=== PATIENT | female | born 1955 | race Caucasian/White ===

== ENCOUNTER 2020-02-29 17:44 | Inpatient (IN) | payer MEDICAID ==
[~2020-02-29] VITALS: Ht 157 cm; Wt 68.8 kg
[2020-02-29] VITALS (7 sets, daily range): BP systolic 108–140; BP diastolic 62–84
[~2020-02-29 17:44] MED LIST: ACET500T94 PO; AMT25T; ASP81TEC PO; B/P MED; BISA5TAB8 PO; BSC10SU PR; CANA300T PO; CEPH250S PO; CHLR10C PO; CIPR500T78 PO; CLON0.5T3 PO; CLOZ100T7 PO; CLOZ150T PO; CPR500T PO; DCS100C PO; DIAZ10TA; DIAZ10TA PO; DOCU100T7 PO; EST30C VG; ESZO2TAB4 PO; FENO135C PO; FENO135C4 PO; GLIM4TAB PO; HYDR-3600; HYDR25CA5 PO; HYDR50CA3; LURA40TA PO; MGCT300B PO; MTF500T PO; MTH750T PO; NA P133E35 PR; NFTRIAZ.25 PO; OMEP40CA36 PO; OXYB5SYR2 PO; OXYB92GE TD; PEDI1TAB36 PO; POLY255P PO; QTP100T PO; RAME8T PO; SIMV10TA3 PO; SITA100T PO; SITA25TA; SITA50TA PO; TRAM50TA2 PO; TRAZ150T42; TRZ50T; VALP250C3 PO; ZOLP5TAB6 PO; [UNRECOGNIZED DRUG - CODE] PO; [UNRECOGNIZED DRUG - CODE] PO
[2020-02-29] MEDS ORDERED: LACTATED RINGERS 2,000 ML IV ONE (17:51)
[2020-02-29] MEDS ORDERED: LACTATED RINGERS 1,000 ML IV ONE (17:54)
[2020-02-29 18:01] LABS: BASOPHILS % (AUTO) 1 % (0-10); EOSINOPHILS # (AUTO) 0.1 10^3/uL (0.0-0.3); EOSINOPHILS % (AUTO) 2 % (0-10); HEMOGLOBIN 14.4 g/dL (11.5-16.0); MEAN PLATELET VOLUME 9.4 fL (9.0-12.2)
[2020-02-29 18:03] LABS: HEMATOCRIT 40 % (35-52); LYMPHOCYTES % (AUTO) 32 % (12-44); MEAN CORPUSCULAR HEMOGLOBIN 33 pg (25-34); MEAN CORPUSCULAR HGB CONC 36 g/dL (32-36); MEAN CORPUSCULAR VOLUME 91 fL (80-99); MONOCYTES # (AUTO) 0.4 10^3/uL (0.0-1.0); MONOCYTES % (AUTO) 7 % (0-12); NEUTROPHILS # (AUTO) 3.6 10^3/uL (1.8-7.8); NEUTROPHILS % (AUTO) 59 % (42-75); WHITE BLOOD COUNT 6.2 10^3/uL (4.3-11.0)
[2020-02-29 18:04] LABS: PLATELET COUNT 88 10^3/uL (130-400)
[2020-02-29 18:06] LABS: ALBUMIN 4.3 GM/DL (3.2-4.5); CHLORIDE 100 MMOL/L (98-107); POTASSIUM 3.8 MMOL/L (3.6-5.0); SODIUM 129 MMOL/L (135-145)
[2020-02-29 18:07] LABS: BILIRUBIN,URINE NEGATIVE (NEGATIVE); CLARITY,URINE CLEAR; COLOR,URINE YELLOW; GLUCOSE, URINE (UA) 2+ (NEGATIVE); KETONES,URINE NEGATIVE (NEGATIVE); LEUKOCYTE ESTERASE ,URINE NEGATIVE (NEGATIVE); NITRITE,URINE NEGATIVE (NEGATIVE); PH,URINE 6.5 (5-9); PROTEIN,URINE NEGATIVE (NEGATIVE)
[2020-02-29 18:08] LABS: CALCIUM 8.8 MG/DL (8.5-10.1)
[2020-02-29 18:09] LABS: GLUCOSE 81 MG/DL (70-105); TOTAL PROTEIN 7.8 GM/DL (6.4-8.2)
[2020-02-29 18:10] LABS: BILIRUBIN,TOTAL 0.5 MG/DL (0.1-1.0); CARBON DIOXIDE 16 MMOL/L (21-32)
[2020-02-29 18:12] LABS: ALKALINE PHOSPHATASE 64 U/L (40-136); CREATININE SERUM 0.81 MG/DL (0.60-1.30); GFR ESTIMATED > 60
[2020-02-29 18:13] LABS: BUN/CREATININE RATIO 30
[2020-02-29 18:15] LABS: ALANINE AMINOTRANSFERASE 9 U/L (0-55)
[2020-02-29 18:15] LABS: BACTERIA,URINE NEGATIVE /HPF
[2020-02-29 18:35] LABS: AMPHETAMINE SCREEN, URINE NEGATIVE (NEGATIVE); BARBITURATE SCREEN URINE NEGATIVE (NEGATIVE); BENZODIAZEPINES SCREEN URINE NEGATIVE (NEGATIVE); CANNABINOID SCREEN, URINE NEGATIVE (NEGATIVE); COCAINE SCREEN URINE NEGATIVE (NEGATIVE); METHADONE STAT NEGATIVE (NEGATIVE); METHAMPHETAMINE SCREEN URINE S NEGATIVE (NEGATIVE); OPIATE SCREEN URINE NEGATIVE (NEGATIVE); OXYCODONE STAT NEGATIVE (NEGATIVE); PROPOXYPHENE STAT NEGATIVE (NEGATIVE); TRICYCLIC ANTIDEPRESSANTS SCRE NEGATIVE (NEGATIVE)
[2020-02-29 18:35] LABS: MAGNESIUM 2.1 MG/DL (1.6-2.4)
[2020-02-29 18:36] LABS: SALICYLATE < 5.0 MG/DL (5.0-20.0)
[2020-02-29 18:43] LABS: ACETAMINOPHEN < 10 UG/ML (10-30); VALPROIC ACID < 2.0 UG/ML (50.0-100.0)
--- NOTE | 2020-02-29 18:52 | ED General ---
General Chief Complaint: Trauma-Non Activation Nursing Triage Note: PT ARRIVED PER EMS PT WAS FOUND ON FLOOR, UNKNOWN AMT OF TIME BS 69 FOR EMS, PT HAS D10 INFUSING ON ARRIVAL IN L AC. PT IS CONFUSED AND IS ABLE TO MOVE ALL EXT. PT BP LOW FOR EMS BUT 198/86 UPON ARRIVAL. PT BS 109 UPON ARRIVAL D10 STOPPED Nursing Sepsis Screen: No Definite Risk Source of Information: Patient Exam Limitations: No Limitations History of Present Illness Date Seen by Provider: Feb 29, 2020 Time Seen by Provider: 17:51 Initial Comments This 64-year-old woman presents to the emergency room via EMS with altered mental status. She was checked on by her neighbor multiple times today. She was found on the floor with incontinence and urine soaked. He was able to get her up thing encourage her to shower. He came back later and checked on her and she had showered. He checked on her a third time and found her on the floor, confused, and not wearing pants. EMS reported a fingerstick blood sugar of 69. They started infusing D10. Blood sugar improved and was 109 by the time she arrived to the ER. EMS also reported hypotension with a systolic blood pressure of 80. However, she is not hypotensive on arrival. Patient does have a history of syncope on review of chart. She also has diabetes and takes glimepiride. She also takes multiple psychiatric medications and has a documented history of schizophrenia. Speech is mumbled on presentation for nursing staff. By the time of my exam she can answer most questions. She denies any pain. She is alert to person, age, year, and location. She is disoriented to month. She has a tremor and it is unclear of the chronicity. She states she has this intermittently but does not answer how long she has had it. She is afebrile and she denies any symptoms of infectious illness. Last known well time was prior to today. Location Injury Occurred: HOME Allergies and Home Medications Allergies Coded Allergies: codeine (Verified Allergy, Mild, 11/01/12) Penicillins (Verified Allergy, Unknown, 11/01/12) sulindac (Verified Allergy, Unknown, 11/01/12) amitriptyline (Verified Adverse Reaction, Intermediate, 11/01/12) Home Medications Acetaminophen 500 Mg Tablet, 500 MG PO Q8H PRN for PAIN, (Reported) Canagliflozin 300 Mg Tablet, 300 MG PO DAILY, (Reported) Ciprofloxacin HCl 500 Mg Tablet, 500 MG PO BID Prescribed by: ELIZABETH HUERTA on 09/26/14 0755 Clonazepam 0.5 Mg Tablet, 0.5 MG PO BID PRN for ANXIETY, (Reported) Clozapine 100 Mg Tablet, 500 MG PO HS, (Reported) TAKES 5 (100MG) TABLETS Docusate Sodium 100 Mg Capsule, 100 MG PO TID PRN for CONSTIPATION, (Reported) LAST FILLED 04-16-14 Estrogens Conjugated 30 Gm Cr, 1 GM VG WED & SAT, (Reported) Fenofibric Acid (Choline) 135 Mg Capsule.dr, 135 MG PO DAILY, (Reported) Glimepiride 4 Mg Tablet, 8 MG PO DAILY, (Reported) TAKES 2 (4MG) TABLETS Omeprazole 40 Mg Capsule.dr, 40 MG PO DAILY, (Reported) Oxybutynin 92 Gm Gel.slater apprentice, 3 APPLIC TD DAILY, (Reported) LAST FILLED 07-25-14 APPLY 3 PUMPS Polyethylene Glycol 3350 255 Gm Powder, 17 GM PO DAILY PRN for CONSTIPATION, (Reported) Sitagliptin Phosphate 100 Mg Tablet, 100 MG PO DAILY, (Reported) Tramadol Hcl 50 Mg Tab, 50 MG PO BID PRN for PAIN, (Reported) Valproic Acid 250 Mg Capsule, 250 MG PO BID, (Reported) Patient Home Medication List Home Medication List Reviewed: Yes Review of Systems Review of Systems Constitutional: see HPI EENTM: no symptoms reported Respiratory: wheezing Cardiovascular: see HPI Gastrointestinal: no symptoms reported Genitourinary: see HPI : No Musculoskeletal: no symptoms reported Skin: no symptoms reported Psychiatric/Neurological: See HPI Hematologic/Lymphatic: No Symptoms Reported Immunological/Allergic: no symptoms reported Past Gokutiz-Crmvnj-Kcnbnu Hx Past Med/Social Hx: Reviewed Nursing Past Med/Soc Hx Patient Social History Alcohol Use: Denies Use Recreational Drug Use: No Smoking Status: Current Everyday Smoker Type Used: Cigarettes Recent Foreign Travel: No Contact w/Someone Who Travel: No Recent Infectious Disease Expo: No Recent Hopitalizations: No (BRONCHITIS) Physical Abuse: No Sexual Abuse: No Immunizations Up To Date Tetanus Booster (TDap): Unknown Date of Pneumonia Vaccine: Oct 04, 2011 Date of Influenza Vaccine: Jan 08, 2013 Past Medical History Surgeries: No Respiratory: Yes Chronic Bronchitis, COPD Cardiac: No Neurological: No : No Reproductive Disorders: No Female Reproductive Disorders: Denies Sexually Transmitted Disease: No HIV/AIDS: No Gastrointestinal: Yes Abdominal Hernia, Chronic Constipation Musculoskeletal: Yes Chronic Back Pain Endocrine: Yes Diabetes, Non-Insulin dep Loss of Vision: Denies Hearing Impairment: Denies Cancer: No Psychosocial: Yes Sleep Difficulties, Schizophrenia, Depression Integumentary: No Blood Disorders: No Adverse Reaction/Blood Tranf: No Family Medical History Reviewed Nursing Family Hx Alzheimer's disease 19 FATHER Diabetes mellitus G8 SISTER Myocardial infarction 19 MOTHER G8 BROTHER Physical Exam Vital Signs Vital Signs - First Documented 02/29/20 17:46 Temp 37.3 Pulse 95 Resp 20 B/P (MAP) 198/86 (123) Pulse Ox 96 O2 Delivery Room Air Capillary Refill : Less Than 3 Seconds Height, Weight, BMI Height: 5'6" Weight: 160lbs. 3.0oz. [id number]; 31.00 BMI Method:Stated General Appearance: No Apparent Distress, WD/WN, Other (Somnolent) HEENT: PERRL/EOMI, Normal ENT Inspection, Other (Mucous membranes somewhat dry) Neck: Normal Inspection, Non Tender Respiratory: Lungs Clear, Normal Breath Sounds, No Accessory Muscle Use, No Respiratory Distress Cardiovascular: Regular Rate, Rhythm, No Edema, No Murmur, Normal Peripheral Pulses Gastrointestinal: Normal Bowel Sounds, Non Tender, Soft Extremity: Normal Inspection, Non Tender, No Pedal Edema, Other (No hip tenderness or pain with rotation of the hips) Neurologic/Psychiatric: Alert, No Motor/Sensory Deficits, Normal Mood/Affect, corrugator II-XII Norm as Tested, Other (Generalized weakness but moves all 4 extremities equally. Alert and oriented to person, place, age, and year. Disoriented to month. Answers most questions. Diffuse tremor) Skin: Normal Color, Warm/Dry, Other (Normal capillary refill) Focused Exam Lactate Level 02/29/20 18:42: Lactic Acid Level 0.97 Lactic Acid Level Progress/Results/Core Measures Suspected Sepsis Recent Fever Within 48 Hours: No Infection Criteria Present: None New/Unexplained Altered Menta: Yes Sepsis Screen: No Definite Risk SIRS Temperature: Pulse: 95 Respiratory Rate: 20 Laboratory Tests 02/29/20 17:46: White Blood Count 6.2 Blood Pressure 198 /86 Mean: 123 02/29/20 18:42: Lactic Acid Level 0.97 Laboratory Tests 02/29/20 17:46: Creatinine 0.81, Platelet Count 88L, Total Bilirubin 0.5 02/29/20 18:42: INR Comment 1.0 Results/Orders Lab Results Laboratory Tests Test 02/29/20 17:00 02/29/20 17:46 02/29/20 17:50 02/29/20 17:51 Range/Units Urine Opiates Screen NEGATIVE NEGATIVE Urine Oxycodone Screen NEGATIVE NEGATIVE Urine Methadone Screen NEGATIVE NEGATIVE Urine Propoxyphene Screen NEGATIVE NEGATIVE Urine Barbiturates Screen NEGATIVE NEGATIVE Ur Tricyclic Antidepressants Screen NEGATIVE NEGATIVE Urine Phencyclidine Screen NEGATIVE NEGATIVE Urine Amphetamines Screen NEGATIVE NEGATIVE Urine Methamphetamines Screen NEGATIVE NEGATIVE Urine Benzodiazepines Screen NEGATIVE NEGATIVE Urine Cocaine Screen NEGATIVE NEGATIVE Urine Cannabinoids Screen NEGATIVE NEGATIVE White Blood Count 6.2 4.3-11.0 10^3/uL Red Blood Count 4.37 3.80-5.11 10^6/uL Hemoglobin 14.4 11.5-16.0 g/dL Hematocrit 40 35-52 % Mean Corpuscular Volume 91 80-99 fL Mean Corpuscular Hemoglobin 33 25-34 pg Mean Corpuscular Hemoglobin Concent 36 32-36 g/dL Red Cell Distribution Width 11.9 10.0-14.5 % Platelet Count 88 L 130-400 10^3/uL Mean Platelet Volume 9.4 9.0-12.2 fL Immature Granulocyte % (Auto) 1 % Neutrophils (%) (Auto) 59 42-75 % Lymphocytes (%) (Auto) 32 12-44 % Monocytes (%) (Auto) 7 0-12 % Eosinophils (%) (Auto) 2 0-10 % Basophils (%) (Auto) 1 0-10 % Neutrophils # (Auto) 3.6 1.8-7.8 10^3/uL Lymphocytes # (Auto) 2.0 1.0-4.0 10^3/uL Monocytes # (Auto) 0.4 0.0-1.0 10^3/uL Eosinophils # (Auto) 0.1 0.0-0.3 10^3/uL Basophils # (Auto) 0.0 0.0-0.1 10^3/uL Immature Granulocyte # (Auto) 0.1 0.0-0.1 10^3/uL Sodium Level 129 L 135-145 MMOL/L Potassium Level 3.8 3.6-5.0 MMOL/L Chloride Level 100 98-107 MMOL/L Carbon Dioxide Level 16 L 21-32 MMOL/L Anion Gap 13 5-14 MMOL/L Blood Urea Nitrogen 24 H 7-18 MG/DL Creatinine 0.81 0.60-1.30 MG/DL Estimat Glomerular Filtration Rate > 60 BUN/Creatinine Ratio 30 Glucose Level 81 70-105 MG/DL Calcium Level 8.8 8.5-10.1 MG/DL Corrected Calcium 8.6 8.5-10.1 MG/DL Magnesium Level 2.1 1.6-2.4 MG/DL Total Bilirubin 0.5 0.1-1.0 MG/DL Aspartate Amino Transf (AST/SGOT) 24 5-34 U/L Alanine Aminotransferase (ALT/SGPT) 9 0-55 U/L Alkaline Phosphatase 64 40-136 U/L C-Reactive Protein High Sensitivity 0.28 0.00-0.50 MG/DL Total Protein 7.8 6.4-8.2 GM/DL Albumin 4.3 3.2-4.5 GM/DL TSH [place] Testing 1.72 0.35-4.94 UIU/ML Salicylates Level < 5.0 L 5.0-20.0 MG/DL Acetaminophen Level < 10 L 10-30 UG/ML Valproic Acid (Depakene) Level < 2.0 L 50.0-100.0 UG/ML Serum Alcohol < 10 <10 MG/DL Urine Color YELLOW Urine Clarity CLEAR Urine pH 6.5 5-9 Urine Specific [place] <=1.005 1.016-1.022 Urine Protein NEGATIVE NEGATIVE Urine Glucose (UA) 2+ H NEGATIVE Urine Ketones NEGATIVE NEGATIVE Urine Nitrite NEGATIVE NEGATIVE Urine Bilirubin NEGATIVE NEGATIVE Urine Urobilinogen 0.2 < = 1.0 MG/DL Urine Leukocyte Esterase NEGATIVE NEGATIVE Urine RBC (Auto) NEGATIVE NEGATIVE Urine RBC NONE /HPF Urine WBC NONE /HPF Urine Squamous Epithelial Cells NONE /HPF Urine Crystals NONE /LPF Urine Bacteria NEGATIVE /HPF Urine Casts NONE /LPF Urine Mucus NEGATIVE /LPF Urine Culture Indicated NO Glucometer 107 70-110 MG/DL Test 02/29/20 17:57 02/29/20 18:42 02/29/20 18:55 02/29/20 18:59 Range/Units Coronavirus 2019 (MIKE) Negative Negative Prothrombin Time 13.6 12.2-14.7 SEC INR Comment 1.0 0.8-1.4 Activated Partial Thromboplast Time 27 24-35 SEC Lactic Acid Level 0.97 0.50-2.00 MMOL/L Blood Gas Puncture Site L RAD Blood Gas Patient Temperature 37.3 Arterial Blood pH 7.38 7.37-7.43 Arterial Blood Partial Pressure CO2 36 35-45 MMHG Arterial Blood Partial Pressure O2 94 H 79-93 MMHG Arterial Blood HCO3 21 L 23-27 MMOL/L Arterial Blood Total CO2 21.9 21.0-31.0 MMOL/L Arterial Blood Oxygen Saturation 97 94-100 % Arterial Blood Base Excess -3.3 L -2.5-2.5 MMOL/L Eric Test YES-POS Blood Gas Ventilator Setting NO Blood Gas Inspired Oxygen ROOM AIR Glucometer 66 L 70-110 MG/DL Test 02/29/20 19:58 02/29/20 22:02 02/29/20 23:10 Range/Units Glucometer 185 H 111 H 109 70-110 MG/DL Micro Results Microbiology 02/29/20 Influenza Types A,B Antigen (GRIFFIN) - Final, Complete My Orders Orders - SARAN BOLTON MD Covid 19 Inhouse Test (02/29/20 18:05) Influenza A And B Antigens (02/29/20 18:07) Ct Head/Cervical Spine Wo (02/29/20 18:14) Alcohol (02/29/20 18:17) Drug Screen Stat (Urine) (02/29/20 18:17) Acetaminophen (02/29/20 18:19) Hs C Reactive Protein (02/29/20 18:19) Magnesium (02/29/20 18:19) Salicylate (02/29/20 18:19) Thyroid Analyzer (02/29/20 18:19) Valproic Acid (02/29/20 18:19) Accucheck Stat ONCE (02/29/20 18:56) Accucheck Stat ONCE (02/29/20 18:56) Arterial Blood Gas (02/29/20 18:57) Accucheck Stat ONCE (02/29/20 19:26) Accucheck Stat ONCE (02/29/20 19:26) Medications Given in ED Current Medications Medications Dose Ordered Sig/Luann Route Start Time Stop Time Status Last Admin Dose Admin Lactated Ringer's 2,000 ml @ ud STK-MED ONCE IV 02/29/20 17:51 02/29/20 17:54 DC 02/29/20 17:55 1,000 MLS/HR Vital Signs/I&O 02/29/20 02/29/20 02/29/20 02/29/20 17:46 21:27 21:56 22:00 Temp 37.3 36.7 Pulse 95 109 85 102 Resp 20 18 16 B/P (MAP) 198/86 (123) 135/78 140/75 (96) 123/84 (97) Pulse Ox 96 97 95 99 O2 Delivery Room Air Room Air Room Air Room Air 02/29/20 02/29/20 02/29/20 02/29/20 22:15 22:30 22:45 23:00 Pulse 85 60 60 62 B/P (MAP) 122/70 (87) 108/75 (86) 116/62 (80) Pulse Ox 92 95 97 93 O2 Delivery Room Air Room Air Room Air Room Air 02/29/20 23:11 Temp 36.6 Pulse 61 Resp 16 B/P (MAP) 116/62 (80) Pulse Ox 94 O2 Delivery Room Air Capillary Refill : Less Than 3 Seconds Blood Pressure Mean: 123 Progress Note #1: Time: 19:00 Progress Note Patient's repeat blood sugar was 66. We will resume the D10 infusion. Progress Note #2: Time: 20:55 Progress Note Patient is now alert and oriented x4. However, she seems a little bit confused and still mumbles her speech or has nonsensical speech at times. Blood sugar has improved to the 180s while running D10. She does not appear to have any focal neurologic deficits. Petechiae were noted on the right arm which is likely due to the blood pressure cuff since her blood pressures have been high. Blood pressures overall have been fairly labile. Ultimately, no specific cause of her altered mental status was known. She did comment that she was incontinent of urine twice today. She denies any history of seizures. CT of the head and C-spine was unremarkable. There were some questionable infiltrates on the chest x-ray which are likely chronic. She has had no sign of infectious illness on work-up. Rapid Covid and flu were negative. CRP and WBC were normal. Urine was clear. Toxicology screen was also clear. She is being admitted to the cardiac stepdown unit for further monitoring through the night. Frequent blood sugar checks will be obtained. Tremors have improved but are still present. Diagnostic Imaging Diagonstic Imaging: Xray Plain Films/CT/US/NM/MRI: chest Comments Chest x-ray reviewed by me and report reviewed. See report below: NAME: [facility] REC#: [id number] PT STATUS: REG ER : 1955 PHYSICIAN: NORAH COLON APRN ADMIT DATE: 02/29/20/ER Signed Date of Exam:02/29/20 CHEST 1 VIEW, AP/PA ONLY INDICATION: Sepsis. Dyspnea. Occasional shortness of breath. EXAMINATION: Chest, 02/29/2020. COMPARISON: 09/25/2014. FINDINGS: There are coarse interstitial markings, bilaterally. These findings appear to be chronic although mild superimposed scattered atypical infiltrate is not excluded. Heart unremarkable. Pulmonary vasculature normal. No effusion or pneumothorax. IMPRESSION: Coarsened bilateral interstitia, some of which could be chronic with superimposed mild infiltrates not excluded. Dictated by: Dictated on workstation # [id number] Dict: 02/29/201904 Trans: 02/29/201933 [facility] [id number] Interpreted by: FLIP BENJAMIN MD Electronically signed by: FLIP BENJAMIN MD 02/29/201933 Diagonstic Imaging: CT Plain Films/CT/US/NM/MRI: c-spine, head Comments CT head and C-spine viewed by me and report reviewed. See report below: NAME: LEIF [facility] REC#: [id number] PT STATUS: REG ER : 1955 PHYSICIAN: SARAN BOLTON MD ADMIT DATE: 02/29/20/ER Signed Date of Exam:02/29/20 CT HEAD/CERVICAL SPINE WO INDICATION: Status post fall, trauma, pain. EXAMINATION: CT brain and CT cervical spine, 02/29/2020. All CT scans use one or more of the following dose optimizing techniques: automated exposure control, MA and/or KvP adjustment based on patient size and exam type or iterative reconstruction. FINDINGS: CT brain: Multiple axial images of the brain without contrast. There is no evidence for acute hemorrhage or infarct. There is no mass, mass effect, midline shift or hydrocephalus. The paranasal sinuses and mastoid air cells demonstrate no acute abnormality. IMPRESSION: No acute intracranial process. CT cervical spine: Minimal grade 1 anterolisthesis noted at C5-C6, likely degenerative in nature. No compression deformity is appreciated. Lung apices appear clear. Prevertebral soft tissues unremarkable. IMPRESSION: No acute process within the cervical spine. Dictated by: Dictated on workstation # [id number] Dict: 02/29/201917 Trans: 02/29/201933 [facility] [id number] Interpreted by: FLIP BENJAMIN MD Electronically signed by: FLIP BENJAMIN MD 02/29/201933 Departure Communication (Admissions) Time/Spoke to Admitting Phy: 20:25 Dr. Gordillo Impression Primary Impression: Hypoglycemia Additional Impression: Altered mental status Qualified Codes: R41.82 - Altered mental status, unspecified Disposition: 09 ADMITTED INPATIENT Condition: Improved Admissions Decision to Admit Reason: Admit from ER (General) Decision to Admit/Date: Feb 29, 2020 Time/Decision to Admit Time: 18:15 Departure-Patient Inst. Referrals: ADAM BEGUM DO (PCP) Primary Care Physician ANA POST (Family) Primary Care Physician SARAN BOLTON MD Feb 29, 2020 18:52
[2020-02-29 18:56] LABS: TSH (THYROID ANALYZER) 1.72 UIU/ML (0.35-4.94)
[2020-02-29 19:06] LABS: ABG BASE EXCESS -3.3 MMOL/L (-2.5-2.5); ABG OXYGEN SATURATION 97 % (94-100); ABG PCO2 36 MMHG (35-45); ABG PH 7.38 (7.37-7.43); ABG PO2 94 MMHG (79-93); ABG TCO2 21.9 MMOL/L (21.0-31.0); ALLENS TEST YES-POS
[2020-02-29 19:07] LABS: INSPIRED O2 ROOM AIR; PATIENT TEMP 37.3; VENTILATOR NO
[2020-02-29 19:10] LABS: PROTHROMBIN TIME PATIENT 13.6 SEC (12.2-14.7)
--- NOTE | 2020-02-29 19:13 | Diagnostic Imaging Report ---
INDICATION: Sepsis. Dyspnea. Occasional shortness of breath. EXAMINATION: Chest, 02/29/2020. COMPARISON: 09/25/2014. FINDINGS: There are coarse interstitial markings, bilaterally. These findings appear to be chronic although mild superimposed scattered atypical infiltrate is not excluded. Heart unremarkable. Pulmonary vasculature normal. No effusion or pneumothorax. IMPRESSION: Coarsened bilateral interstitia, some of which could be chronic with superimposed mild infiltrates not excluded. Dictated by: Dictated on workstation # [id number]
--- NOTE | 2020-02-29 19:23 | Diagnostic Imaging Report ---
INDICATION: Status post fall, trauma, pain. EXAMINATION: CT brain and CT cervical spine, 02/29/2020. All CT scans use one or more of the following dose optimizing techniques: automated exposure control, MA and/or KvP adjustment based on patient size and exam type or iterative reconstruction. FINDINGS: CT brain: Multiple axial images of the brain without contrast. There is no evidence for acute hemorrhage or infarct. There is no mass, mass effect, midline shift or hydrocephalus. The paranasal sinuses and mastoid air cells demonstrate no acute abnormality. IMPRESSION: No acute intracranial process. CT cervical spine: Minimal grade 1 anterolisthesis noted at C5-C6, likely degenerative in nature. No compression deformity is appreciated. Lung apices appear clear. Prevertebral soft tissues unremarkable. IMPRESSION: No acute process within the cervical spine. Dictated by: Dictated on workstation # [id number]
[2020-02-29] MEDS ORDERED: D5 1/2 NS W/KCL 20 MEQ/L 1,000 ML IV ONE (21:33)
[2020-02-29] MEDS ORDERED: ONDANSETRON 4 MG/2 ML (SDV) Z0FRAN IVP PRN (21:45)
[2020-02-29] MEDS ORDERED: meTOprolol 5 MG/5 ML (LOPRESSOR) VIAL IV PRN (22:00)
[2020-02-29] MEDS: D5 1/2 NS W/KCL 20 MEQ/L 1,000 ML IV SCH (22:08)
[2020-03-01] VITALS (7 sets, daily range): BP systolic 101–131; BP diastolic 55–61
[2020-03-01 03:09] LABS: BASOPHILS % (AUTO) 0 % (0-10); EOSINOPHILS # (AUTO) 0.1 10^3/uL (0.0-0.3); EOSINOPHILS % (AUTO) 1 % (0-10); HEMATOCRIT 40 % (35-52); HEMOGLOBIN 14.2 g/dL (11.5-16.0); LYMPHOCYTES % (AUTO) 31 % (12-44); MEAN CORPUSCULAR HEMOGLOBIN 33 pg (25-34); MEAN CORPUSCULAR HGB CONC 35 g/dL (32-36); MEAN CORPUSCULAR VOLUME 93 fL (80-99); MONOCYTES # (AUTO) 0.4 10^3/uL (0.0-1.0); MONOCYTES % (AUTO) 6 % (0-12); NEUTROPHILS % (AUTO) 61 % (42-75); PLATELET COUNT 106 10^3/uL (130-400); WHITE BLOOD COUNT 6.6 10^3/uL (4.3-11.0)
[2020-03-01 03:21] LABS: ALBUMIN 4.2 GM/DL (3.2-4.5); CHLORIDE 112 MMOL/L (98-107); POTASSIUM 3.6 MMOL/L (3.6-5.0); SODIUM 142 MMOL/L (135-145)
[2020-03-01 03:22] LABS: CALCIUM 9.3 MG/DL (8.5-10.1)
[2020-03-01 03:23] LABS: GLUCOSE 116 MG/DL (70-105); TOTAL PROTEIN 7.3 GM/DL (6.4-8.2)
[2020-03-01 03:24] LABS: CARBON DIOXIDE 18 MMOL/L (21-32)
[2020-03-01 03:25] LABS: BILIRUBIN,TOTAL 0.5 MG/DL (0.1-1.0)
[2020-03-01 03:27] LABS: ALKALINE PHOSPHATASE 59 U/L (40-136); CREATININE SERUM 0.86 MG/DL (0.60-1.30); GFR ESTIMATED > 60
[2020-03-01 03:28] LABS: BUN/CREATININE RATIO 23
[2020-03-01 03:30] LABS: ALANINE AMINOTRANSFERASE 10 U/L (0-55)
[2020-03-01] MEDS: D5 1/2 NS W/KCL 20 MEQ/L 1,000 ML IV SCH (05:50)
--- NOTE | 2020-03-01 06:25 | NUR ---
THIS RN NOTIFIED DR. CHURCH THAT PATIENT'S LAST TWO BLOOD SUGARS WERE 134 (NOW) AND 219 AT 0430, AFTER EATING. PATIENT IS ALERT AND ORIENTED. PATIENT IS ALSO EATING AND DRINKING WELL. NEW ORDER RECEIVED AT THIS TIME TO D/C PATIENT'S MAINTENANCE FLUIDS. SEE EMAR AND ORDER HX.
[2020-03-01] MEDS ORDERED: ENOXAPARIN 40 MG/0.4 ML (LOVENOX) SYR SC SCH (09:00)
--- NOTE | 2020-03-01 10:59 | History & Physical-Hospitalist ---
History of Present Illness Date Seen 03/01/20 Attending Physician Jojo Gordillo DO PCP Johnna Britton DO Referring Physician Date of Admission Feb 29, 2020 at 20:33 Home Medications & Allergies Home Medications Reviewed patient Home Medication Reconciliation performed by pharmacy medication reconciliations gas technician and/or nursing. Patients Allergies have been reviewed. Allergies Allergies Coded Allergies codeine (Verified Allergy, Mild, 11/01/12) Penicillins (Verified Allergy, Unknown, 11/01/12) sulindac (Verified Allergy, Unknown, 11/01/12) amitriptyline (Verified Adverse Reaction, Intermediate, 11/01/12) Past Dapbczk-Hcwame-Bmfhtr Hx Past Med/Social Hx: Reviewed Nursing Past Med/Soc Hx Patient Social History Alcohol Use: Denies Use Recreational Drug Use: No Smoking Status: Current Everyday Smoker Type Used: Cigarettes Recent Foreign Travel: No Contact w/other who traveled: No Recent Hopitalizations: No (BRONCHITIS) Recent Infectious Disease Expo: No Immunizations Up To Date Tetanus Booster (TDap): Unknown Date of Pneumonia Vaccine: Oct 04, 2011 Date of Influenza Vaccine: Feb 19, 2020 Past Medical History : No Reproductive: No Sexually Transmitted Disease: No HIV/AIDS: No Female Reproductive Disorders: Denies Gastrointestinal: Abdominal Hernia, Chronic Constipation Musculoskeletal: Chronic Back Pain Endocrine: Diabetes, Non-Insulin dep Loss of Vision: Denies Hearing Impairment: Denies Psychosocial: Sleep Difficulties, Schizophrenia, Depression History of Blood Disorders: No Adverse Reaction to Blood [place]: No Family History Reviewed Nursing Family Hx Alzheimer's disease 19 FATHER Diabetes mellitus G8 SISTER Myocardial infarction 19 MOTHER G8 BROTHER Physical Exam Physical Exam Vital Signs Vital Signs - First Documented 02/29/20 17:46 Temp 37.3 Pulse 95 Resp 20 B/P (MAP) 198/86 (123) Pulse Ox 96 O2 Delivery Room Air Capillary Refill : Less Than 3 Seconds Height, Weight, BMI Height: 5'6" Weight: 160lbs. 3.0oz. 72.733284pq; 27.91 BMI Method:Stated Results Results/Procedures Labs Laboratory Tests 02/29/20 17:46 03/01/20 02:51 Patient resulted labs reviewed. Clinical Quality Measures DVT/VTE Risk/Contraindication: Risk Factor Score Per Nursin RFS Level Per Nursing on Admit: 4+=Very High JOJO GORDILLO DO Mar 01, 2020 10:59
[2020-03-01] MEDS ORDERED: GLIM2TAB4 PO (12:37)
--- NOTE | 2020-03-01 12:38 | Short Stay Summary-Hospitalist ---
History of Present Illness HPI/Chief Complaint CC: AMS due to hypoglycemia HPI: This is a 64yoWF clinic patient of [facility] who has a h/o schizophrenia and DM who presented to the ER with AMS and refractory hypoglycemia. She had 3 falls today and her neighbor came to pick her up off the floor. Apparently she takes her DM pills and then does not eat for the entire weekend giving rise to severe and refractory hypoglycemia. She promises to eat on the weekends from now on and insists on leaving so she can smoke. Source: patient, RN/MD Exam Limitations: physical impairment Date Seen 03/01/20 Time Seen by a Provider: 11:30 Attending Physician Jojo Gordillo DO PCP Johnna Britton DO Referring Physician Date of Admission Feb 29, 2020 at 20:33 Home Medications & Allergies Home Medications Reviewed patient Home Medication Reconciliation performed by pharmacy medication reconciliations audio video technician and/or nursing. Patients Allergies have been reviewed. Allergies Allergies Coded Allergies codeine (Verified Allergy, Mild, 11/01/12) Penicillins (Verified Allergy, Unknown, 11/01/12) sulindac (Verified Allergy, Unknown, 11/01/12) amitriptyline (Verified Adverse Reaction, Intermediate, 11/01/12) Past Omhuxud-Mlzfuj-Hdjhcu Hx Past Med/Social Hx: Reviewed Nursing Past Med/Soc Hx, Reviewed and Corrections made Patient Social History Marrital Status: single Employed/Student: unemployed Alcohol Use: Denies Use Recreational Drug Use: No Smoking Status: Current Everyday Smoker Type Used: Cigarettes Recent Foreign Travel: No Contact w/other who traveled: No Recent Hopitalizations: No (BRONCHITIS) Recent Infectious Disease Expo: No Immunizations Up To Date Tetanus Booster (TDap): Unknown Date of Pneumonia Vaccine: Oct 04, 2011 Date of Influenza Vaccine: Feb 19, 2020 Past Medical History : No Reproductive: No Sexually Transmitted Disease: No HIV/AIDS: No Female Reproductive Disorders: Denies Gastrointestinal: Abdominal Hernia, Chronic Constipation Musculoskeletal: Chronic Back Pain Endocrine: Diabetes, Non-Insulin dep Loss of Vision: Denies Hearing Impairment: Denies Psychosocial: Sleep Difficulties, Schizophrenia, Depression History of Blood Disorders: No Adverse Reaction to Blood Ponce: No Family History Reviewed Nursing Family Hx Alzheimer's disease 19 FATHER Diabetes mellitus G8 SISTER Myocardial infarction 19 MOTHER G8 BROTHER Review of Systems Constitutional: see HPI, malaise, weakness Physical Exam Physical Exam Vital Signs Vital Signs - First Documented 02/29/20 17:46 Temp 37.3 Pulse 95 Resp 20 B/P (MAP) 198/86 (123) Pulse Ox 96 O2 Delivery Room Air Capillary Refill : Less Than 3 Seconds Height, Weight, BMI Height: 5'6" Weight: 160lbs. 3.0oz. 72.422753hg; 27.91 BMI Method:Stated General Appearance: No Apparent Distress, WD/WN, Other (Somnolent) HEENT: PERRL/EOMI, Normal ENT Inspection, Other (Mucous membranes somewhat dry) Neck: Normal Inspection, Non Tender Respiratory: Lungs Clear, Normal Breath Sounds, No Accessory Muscle Use, No Respiratory Distress, Crackles Cardiovascular: Regular Rate, Rhythm, No Edema, No Murmur, Normal Peripheral Pulses Gastrointestinal: Normal Bowel Sounds, Non Tender, Soft Extremity: Normal Inspection, Non Tender, No Pedal Edema, Other (No hip tenderness or pain with rotation of the hips) Neurologic/Psychiatric: Alert, Oriented x3, No Motor/Sensory Deficits, Normal 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 Alert and oriented to person, place, age, and year. Disoriented to month. Answers most questions. Diffuse tremor) Skin: Normal Color, Warm/Dry, Other (Normal capillary refill) Results Results/Procedures Labs Laboratory Tests 02/29/20 17:46 03/01/20 02:51 Patient resulted labs reviewed. Short Stay Diagnosis Discharge Diagnosis-Short Stay Admission Diagnosis Assessment: Hypoglycemia from OHA and not eating Mental illness Smoker Crackles on lung exam Final Discharge Diagnosis Assessment: Hypoglycemia from OHA and not eating Mental illness Smoker Crackles on lung exam Conclusion Plan DC home as she is insisting or will leave AMA Smoking cessation discussed Decreased dose of OHA Diagnosis/Problems Diagnosis/Problems (1) Hypoglycemia Status: Acute (2) Rales (3) Smoker (4) Schizophrenia (5) Altered mental status Status: Acute Qualifiers: Qualified Codes: R41.82 - Altered mental status, unspecified Clinical Quality Measures DVT/VTE Risk/Contraindication: Risk Factor Score Per Nursin RFS Level Per Nursing on Admit: 4+=Very High JOJO GORDILLO DO Mar 01, 2020 12:37
== END 2020-03-01 14:09 | disposition home or self-care (01) | DRG 639 ==
LOC: EDUNIT# 17:44 → ER 17:45 → CSD 20:33
PROVIDERS: ADMIT Internal Medicine; ATTEND Internal Medicine
DX: E11.649 Type 2 diabetes mellitus with hypoglycemia without coma (principal); Z79.84 Long term (current) use of oral hypoglycemic drugs; F17.210 Nicotine dependence, cigarettes, uncomplicated; J44.9 Chronic obstructive pulmonary disease, unspecified; R32 Unspecified urinary incontinence; F20.9 Schizophrenia, unspecified; F32.9 Major depressive disorder, single episode, unspecified; M54.9 Dorsalgia, unspecified; Z20.828 Contact with and (suspected) exposure to other viral communicable diseases
CPT/HCPCS: 36415; 70450; 71045; 72125; 80053; 80164; 80306; 80320; 80329; 81000; 82805; 82962; 83605; 83735; 84443; 85025; 85610; 85730; 86141; 87040; 87088; 87635; 87804

== ENCOUNTER 2020-03-22 20:00 | Observation (INO) | payer MEDICAID ==
[~2020-03-22] VITALS: Ht 167 cm; Wt 68.6 kg
[~2020-03-22 20:00] MED LIST changes: +GLIM2TAB4 PO
[2020-03-22 20:11] LABS: BILIRUBIN,URINE NEGATIVE (NEGATIVE); CLARITY,URINE CLEAR; COLOR,URINE YELLOW; GLUCOSE, URINE (UA) 3+ (NEGATIVE); KETONES,URINE NEGATIVE (NEGATIVE); LEUKOCYTE ESTERASE ,URINE NEGATIVE (NEGATIVE); NITRITE,URINE NEGATIVE (NEGATIVE); PH,URINE 6.5 (5-9); PROTEIN,URINE NEGATIVE (NEGATIVE)
--- NOTE | 2020-03-22 20:12 | ED General ---
General Chief Complaint: Altered Mental Status Stated Complaint: BLOOD SUGAR ISSUES/FALL History of Present Illness Date Seen by Provider: Mar 22, 2020 Time Seen by Provider: 19:48 Initial Comments 64-year-old female brought by EMS after fall at home. The patient is a poor historian that from the EMS report a neighbor had checked on her and she slid down out of bed. He was unable to get her up into bed and had called 911. By the time they arrived she was ambulating to the bathroom without assistance. She was able to ambulate to the EMS cot but had an unsteady gait. Admitted here Feb 28, 2020 for hypoglycemia and labile B/P. She lives alone, neighbor checks on her regularly. Patient has a caregiver for 3 hours a day Monday through Monday, she does not have assistance during the weekend. 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 She follows simple commands, but slow to answer questions. Denies being on anti-coagulants. Reports headache, right temporal, no ecchymosis or swelling. Patient sister called for an update and reports that she talked to her at 1730 and she was coherent, she had just eaten a tuna fish sandwich. And she had no complaints. Family is concerned about her safety at home alone. Timing/Duration: 1 Hour Severity: Mild Associated Systoms: No Chest Pain; Cough; No Diaphoresis, No Fever/Chills, No Headaches, No Loss of Appetite; Malaise; No Nausea/Vomiting, No Rash, No Seizure, No Shortness of Air, No Syncope; Weakness Allergies and Home Medications Allergies Coded Allergies: codeine (Verified Allergy, Mild, 11/01/12) Penicillins (Verified Allergy, Unknown, 11/01/12) sulindac (Verified Allergy, Unknown, 11/01/12) amitriptyline (Verified Adverse Reaction, Intermediate, 11/01/12) Home Medications Acetaminophen 500 Mg Tablet, 500 MG PO Q8H PRN for PAIN, (Reported) Canagliflozin 300 Mg Tablet, 300 MG PO DAILY, (Reported) Clonazepam 0.5 Mg Tablet, 0.5 MG PO BID PRN for ANXIETY, (Reported) Clozapine 100 Mg Tablet, 500 MG PO HS, (Reported) TAKES 5 (100MG) TABLETS Docusate Sodium 100 Mg Capsule, 100 MG PO TID PRN for CONSTIPATION, (Reported) LAST FILLED 1-7-15 Estrogens Conjugated 30 Gm Cr, 1 GM VG WED & SAT, (Reported) Fenofibric Acid (Choline) 135 Mg Capsule., 135 MG PO DAILY, (Reported) Glimepiride 2 Mg Tablet, 2 MG PO DAILY Prescribed by: LAUREN CHURCH on 03/01/20 1237 Omeprazole 40 Mg Capsule., 40 MG PO DAILY, (Reported) Oxybutynin 92 Gm Gel.golf ball winder, 3 APPLIC TD DAILY, (Reported) LAST FILLED 07-25-14 APPLY 3 PUMPS Polyethylene Glycol 3350 255 Gm Powder, 17 GM PO DAILY PRN for CONSTIPATION, (Reported) Sitagliptin Phosphate 100 Mg Tablet, 100 MG PO DAILY, (Reported) Tramadol Hcl 50 Mg Tab, 50 MG PO BID PRN for PAIN, (Reported) Valproic Acid 250 Mg Capsule, 250 MG PO BID, (Reported) Patient Home Medication List Home Medication List Reviewed: Yes Review of Systems Review of Systems Constitutional: see HPI, malaise, weakness EENTM: see HPI, no symptoms reported Respiratory: see HPI, cough; No wheezing Cardiovascular: no symptoms reported, see HPI; No chest pain Gastrointestinal: no symptoms reported, see HPI Genitourinary: no symptoms reported, see HPI Musculoskeletal: no symptoms reported, see HPI Skin: no symptoms reported, see HPI Psychiatric/Neurological: See HPI, Headache; Denies Seizure All Other Systems Reviewed Negative Unless Noted: Yes Past Kqqzond-Rorygq-Jxntyi Hx Past Med/Social Hx: Reviewed Nursing Past Med/Soc Hx Patient Social History Type Used: Cigarettes Recent Hopitalizations: No (BRONCHITIS) Immunizations Up To Date Tetanus Booster (TDap): Unknown Date of Pneumonia Vaccine: Oct 04, 2011 Date of Influenza Vaccine: Feb 19, 2020 Past Medical History Surgeries: No Respiratory: Yes Chronic Bronchitis, COPD Cardiac: No Neurological: No Reproductive Disorders: No Female Reproductive Disorders: Denies Sexually Transmitted Disease: No HIV/AIDS: No Gastrointestinal: Yes Abdominal Hernia, Chronic Constipation Musculoskeletal: Yes Chronic Back Pain Endocrine: Yes Diabetes, Non-Insulin dep Loss of Vision: Denies Hearing Impairment: Denies Cancer: No Psychosocial: Yes Sleep Difficulties, Schizophrenia, Depression Integumentary: No Blood Disorders: No Adverse Reaction/Blood Tranf: No Family Medical History Alzheimer's disease 19 FATHER Diabetes mellitus G8 SISTER Myocardial infarction 19 MOTHER G8 BROTHER Physical Exam Vital Signs Vital Signs - First Documented 03/22/20 20:07 Temp 35.5 Pulse 91 Resp 14 B/P (MAP) 180/93 (122) Pulse Ox 98 O2 Delivery Room Air Capillary Refill : Height, Weight, BMI Height: 5'6" Weight: 160lbs. 3.0oz. 72.435901oq; 27.91 BMI Method:Stated General Appearance: No Apparent Distress, WD/WN Eyes: Bilateral Eye Normal Inspection, Bilateral Eye PERRL HEENT: PERRL/EOMI, TMs Normal, Normal ENT Inspection, Pharynx Normal, Other (right temporal tenderness, no lesions noted. ) Neck: Full Range of Motion, Normal Inspection, Non Tender, Supple Respiratory: Chest Non Tender, Lungs Clear, Normal Breath Sounds Cardiovascular: Regular Rate, Rhythm, No Edema, No Murmur, Normal Peripheral Pulses Gastrointestinal: Normal Bowel Sounds, Non Tender, Soft Back: Normal Inspection, No CVA Tenderness, No Vertebral Tenderness Extremity: Normal Capillary Refill, Normal Inspection, Normal Range of Motion, Non Tender, No Calf Tenderness Neurologic/Psychiatric: Alert, Oriented x3, No Motor/Sensory Deficits Skin: Normal Color, Warm/Dry Comments NIH 0, symmetric weakness 4+/5 but follows all commands, no facial drooping. Progress/Results/Core Measures Suspected Sepsis SIRS Temperature: Pulse: Respiratory Rate: Laboratory Tests 03/22/20 19:55: White Blood Count 6.4 Blood Pressure / Mean: Laboratory Tests 03/22/20 19:55: Creatinine 0.85, INR Comment 1.0, Platelet Count 80L, Total Bilirubin 0.6 Results/Orders Lab Results Laboratory Tests Test 03/22/20 19:55 03/22/20 20:00 03/22/20 20:44 Range/Units White Blood Count 6.4 4.3-11.0 10^3/uL Red Blood Count 4.47 3.80-5.11 10^6/uL Hemoglobin 14.4 11.5-16.0 g/dL Hematocrit 41 35-52 % Mean Corpuscular Volume 92 80-99 fL Mean Corpuscular Hemoglobin 32 25-34 pg Mean Corpuscular Hemoglobin Concent 35 32-36 g/dL Red Cell Distribution Width 12.1 10.0-14.5 % Platelet Count 80 L 130-400 10^3/uL Mean Platelet Volume 8.6 L 9.0-12.2 fL Immature Granulocyte % (Auto) 1 % Neutrophils (%) (Auto) 70 42-75 % Lymphocytes (%) (Auto) 21 12-44 % Monocytes (%) (Auto) 6 0-12 % Eosinophils (%) (Auto) 1 0-10 % Basophils (%) (Auto) 1 0-10 % Neutrophils # (Auto) 4.5 1.8-7.8 10^3/uL Lymphocytes # (Auto) 1.4 1.0-4.0 10^3/uL Monocytes # (Auto) 0.4 0.0-1.0 10^3/uL Eosinophils # (Auto) 0.1 0.0-0.3 10^3/uL Basophils # (Auto) 0.0 0.0-0.1 10^3/uL Immature Granulocyte # (Auto) 0.0 0.0-0.1 10^3/uL Prothrombin Time 13.9 12.2-14.7 SEC INR Comment 1.0 0.8-1.4 Activated Partial Thromboplast Time 27 24-35 SEC Sodium Level 124 *L 135-145 MMOL/L Potassium Level 3.8 3.6-5.0 MMOL/L Chloride Level 94 L 98-107 MMOL/L Carbon Dioxide Level 18 L 21-32 MMOL/L Anion Gap 12 5-14 MMOL/L Blood Urea Nitrogen 24 H 7-18 MG/DL Creatinine 0.85 0.60-1.30 MG/DL Estimat Glomerular Filtration Rate > 60 BUN/Creatinine Ratio 28 Glucose Level 93 70-105 MG/DL Calcium Level 9.5 8.5-10.1 MG/DL Corrected Calcium 8.5-10.1 MG/DL Total Bilirubin 0.6 0.1-1.0 MG/DL Aspartate Amino Transf (AST/SGOT) 22 5-34 U/L Alanine Aminotransferase (ALT/SGPT) 13 0-55 U/L Alkaline Phosphatase 79 40-136 U/L Troponin I 0.071 H <0.028 NG/ML Total Protein 8.2 6.4-8.2 GM/DL Albumin 4.7 H 3.2-4.5 GM/DL Urine Opiates Screen NEGATIVE NEGATIVE Urine Oxycodone Screen NEGATIVE NEGATIVE Urine Methadone Screen NEGATIVE NEGATIVE Urine Propoxyphene Screen NEGATIVE NEGATIVE Acetaminophen Level < 10 L 10-30 UG/ML Urine Barbiturates Screen NEGATIVE NEGATIVE Ur Tricyclic Antidepressants Screen NEGATIVE NEGATIVE Urine Phencyclidine Screen NEGATIVE NEGATIVE Urine Amphetamines Screen NEGATIVE NEGATIVE Urine Methamphetamines Screen NEGATIVE NEGATIVE Urine Benzodiazepines Screen NEGATIVE NEGATIVE Urine Cocaine Screen NEGATIVE NEGATIVE Urine Cannabinoids Screen NEGATIVE NEGATIVE Serum Alcohol < 10 <10 MG/DL Urine Color YELLOW Urine Clarity CLEAR Urine pH 6.5 5-9 Urine Specific Menan <=1.005 1.016-1.022 Urine Protein NEGATIVE NEGATIVE Urine Glucose (UA) 3+ H NEGATIVE Urine Ketones NEGATIVE NEGATIVE Urine Nitrite NEGATIVE NEGATIVE Urine Bilirubin NEGATIVE NEGATIVE Urine Urobilinogen 0.2 < = 1.0 MG/DL Urine Leukocyte Esterase NEGATIVE NEGATIVE Urine RBC (Auto) TRACE-I NEGATIVE Urine RBC RARE /HPF Urine WBC RARE /HPF Urine Squamous Epithelial Cells RARE /HPF Urine Crystals NONE /LPF Urine Bacteria NEGATIVE /HPF Urine Casts NONE /LPF Urine Mucus NEGATIVE /LPF Urine Culture Indicated NO Coronavirus 2019 (MIKE) Negative Negative Micro Results Microbiology 03/22/20 Influenza Types A,B Antigen (GRIFFIN) - Final, Complete My Orders Orders - LILIANA LYON Ct Head Wo-R/O Stroke (03/22/20 20:01) Cbc With Automated Diff (03/22/20 20:01) Comprehensive Metabolic Panel (03/22/20 20:01) Protime With Inr (03/22/20 20:01) Partial Thromboplastin Time (03/22/20 20:01) Ua Culture If Indicated (03/22/20 20:01) Troponin I (03/22/20 20:01) Chest 1 View, Ap/Pa Only (03/22/20 20:01) Accucheck Stat ONCE (03/22/20 20:01) Ed Iv/Invasive Line Start (03/22/20 20:01) D5 1/2 Ns 1000 Ml Iv Solution (Dextrose (03/22/20 20:15) Ekg Tracing (03/22/20 20:05) Continuous Ekg Monitoring (03/22/20 20:05) Drug Screen Stat (Urine) (03/22/20 20:40) Covid 19 Inhouse Test (03/22/20 20:42) Influenza A And B Antigens (03/22/20 20:42) Acetaminophen (03/22/20 19:55) Alcohol (03/22/20 19:55) Ed Iv/Invasive Line Start (03/22/20 21:07) Ns Iv 500 Ml (Sodium Chloride 0.9%) (03/22/20 21:15) Ns Iv 1000 Ml (Sodium Chloride 0.9%) (03/22/20 21:04) Aspirin Chewable Tablet (Baby Aspirin Ch (03/22/20 21:15) Metoprolol Tartrate Injection (Lopressor (03/22/20 21:30) Medications Given in ED Current Medications Medications Dose Ordered Sig/Luann Route Start Time Stop Time Status Last Admin Dose Admin Aspirin 324 mg ONCE ONCE PO 03/22/20 21:15 03/22/20 21:16 DC 03/22/20 21:17 324 MG Dextrose/Sodium Chloride 1,000 ml @ 200 mls/hr ONCE ONCE IV 03/22/20 20:15 03/23/20 01:14 03/22/20 20:44 200 MLS/HR Metoprolol Tartrate 5 mg ONCE ONCE IV 03/22/20 21:30 03/22/20 21:31 DC 03/22/20 21:36 5 MG Sodium Chloride 1,000 ml @ ud STK-MED ONCE .ROUTE 03/22/20 21:04 03/22/20 21:08 DC 03/22/20 21:12 500 MLS/HR Vital Signs/I&O 03/22/20 20:07 Temp 35.5 Pulse 91 Resp 14 B/P (MAP) 180/93 (122) Pulse Ox 98 O2 Delivery Room Air Capillary Refill : Progress Note : Time: 19:48 Progress Note Patient seen and evaluated, will obtain CT head, EKG, labs and monitor. Accu- Chek 97. D5 1/2 NS at 200 mL per an hour 1999 telemetry shows runs of A. fib, a flutter and then sinus rhythm. Rate has stayed between 80 and 100. Patient denies any chest pain. Will give aspirin [address] head negative per radiology. Patient slightly more talkative, denies any complaints at this time. Awaiting labs. 2030 Sodium 124, will change IV to Normal Saline. Spoke to patient's sister for update. Informed we would plan to admit her for observation. Metoprolol 5 mg IV for b/p and HR 90-100. Rapid COVID-19 Neg, no send out to be completed, Influenza A and B Neg. [address] Sampson, agreed EKG showing A-Fib, no previous diagnosis. Trop 0.071 Last cardiology visit at hospital 2015. Discussed risk vs benefit of anit- coagulants with recurrent falls, will hold at this time. Cont to have a-fib and sinus rhythm per telemetry. [address] David, agreed with plan to admit to medical with telemetry. ECG Initial ECG Impression Date: Mar 22, 2020 Initial ECG Impression Time: 20:26 Initial ECG Rhythm: A Fib/Flutter Initial ECG Intervals QRSD 87, QT 338, QTc 414. Harris QRS 45, T 23. Initial ECG Comparisson: Changed EKG : EKG Time: 21:11 Rate: 100 Rhythm: A Fib/Flutter Intervals QRSD 80, QT 296, QTc 382. Harris QRS 53, T 37 ECG Comparisson: Changed Diagnostic Imaging Diagonstic Imaging: CT Plain Films/CT/US/NM/MRI: head Comments NAME: LEIF CORBETT MED REC#: [id number] PT STATUS: REG ER : 1955 PHYSICIAN: LILIANA LYON ADMIT DATE: 03/22/20/ER Draft Date of Exam:03/22/20 CT HEAD WO-R/O STROKE INDICATION: Neurodeficit. TECHNIQUE: Routine non contrast-enhanced axial images were obtained from the skull base to the vertex. Auto Exposure Controls were utilized during the CT exam to meet ALARA standards for radiation dose reduction. COMPARISON: 02/29/2020. FINDINGS: The ventricles and cortical sulci are diffusely prominent, compatible with age-related volume loss. There are confluent areas of abnormal, low attenuation in the periventricular white matter. This is consistent with chronic small vessel ischemic changes. There is no midline shift or mass-effect. No acute intra-axial hemorrhage is seen. There are no abnormal areas of increased or decreased density to suggest acute hemorrhage or edema. No extra-axial masses or collections are present. The bony calvarium is intact. The visualized paranasal sinuses show scattered mild mucosal thickening. The mastoid air cells are clear. IMPRESSION: 1. No acute intracranial abnormality. No CT evidence of mass, acute infarct or intracranial hemorrhage. 2. Chronic small vessel ischemic changes in the deep white matter. Results were discussed with Liliana Lyon by Dr. Galeana at 2019 on 03/22/2020. Dictated on workstation # [id number] Dict: 03/22/202019 Trans: 03/22/202026 [facility] [id number] Interpreted by: JD GALEANA MD Electronically signed by: Reviewed: Discussed w/Radiologist Diagonstic Imaging: Xray Plain Films/CT/US/NM/MRI: chest Comments NAME: LEIF CORBETT [facility] REC#: [id number] PT STATUS: REG ER : 1955 PHYSICIAN: LILIANA LYON ADMIT DATE: 03/22/20/ER Draft Date of Exam:03/22/20 CHEST 1 VIEW, AP/PA ONLY INDICATION: Cough, lethargic. COMPARISON: 02/29/2020. EXAMINATION: Single frontal view of the chest was obtained. FINDINGS: Normal heart size and pulmonary vascularity. Lungs show diffuse prominence of the interstitium. Appearance is stable compared to 02/29/2020. There is no new focal alveolar consolidation, large effusion or pneumothorax. Osseous structures show no gross acute abnormality. IMPRESSION: Stable diffuse prominence of the interstitium. Reviewed: Reviewed by Me Departure Impression Primary Impression: Schizophrenia Qualified Codes: F20.9 - Schizophrenia, unspecified Additional Impressions: Altered mental status Qualified Codes: R40.4 - Transient alteration of awareness Diabetes Qualified Codes: E11.9 - Type 2 diabetes mellitus without complications Labile hypertension Hyponatremia Disposition: ADMITTED INPATIENT Condition: Stable Admissions Decision to Admit Reason: Admit from ER (General) Decision to Admit/Date: Mar 22, 2020 Time/Decision to Admit Time: 21:00 Departure-Patient Inst. Referrals: ADAM BEGUM DO (PCP) Primary Care Physician ANA POST (Family) Primary Care Physician LILIANA LYON Mar 22, 2020 20:12
[2020-03-22 20:14] LABS: BASOPHILS % (AUTO) 1 % (0-10); EOSINOPHILS # (AUTO) 0.1 10^3/uL (0.0-0.3); EOSINOPHILS % (AUTO) 1 % (0-10); HEMATOCRIT 41 % (35-52); HEMOGLOBIN 14.4 g/dL (11.5-16.0); LYMPHOCYTES # (AUTO) 1.4 10^3/uL (1.0-4.0); LYMPHOCYTES % (AUTO) 21 % (12-44); MEAN CORPUSCULAR HEMOGLOBIN 32 pg (25-34); MEAN CORPUSCULAR HGB CONC 35 g/dL (32-36); MEAN CORPUSCULAR VOLUME 92 fL (80-99); MEAN PLATELET VOLUME 8.6 fL (9.0-12.2); MONOCYTES # (AUTO) 0.4 10^3/uL (0.0-1.0); MONOCYTES % (AUTO) 6 % (0-12); NEUTROPHILS # (AUTO) 4.5 10^3/uL (1.8-7.8); NEUTROPHILS % (AUTO) 70 % (42-75); PLATELET COUNT 80 10^3/uL (130-400); WHITE BLOOD COUNT 6.4 10^3/uL (4.3-11.0)
[2020-03-22] MEDS ORDERED: D5 1/2 NS 1000 ML IV SOLUTION 1,000 ML IV ONE (20:15)
[2020-03-22 20:18] LABS: BACTERIA,URINE NEGATIVE /HPF; RBC,URINE RARE /HPF; SQUAMOUS EPITHELIAL CELL,UR RARE /HPF; WBC,URINE RARE /HPF
[2020-03-22 20:25] LABS: PROTHROMBIN TIME PATIENT 13.9 SEC (12.2-14.7)
--- NOTE | 2020-03-22 20:28 | Diagnostic Imaging Report ---
INDICATION: Neurodeficit. TECHNIQUE: Routine non contrast-enhanced axial images were obtained from the skull base to the vertex. Auto Exposure Controls were utilized during the CT exam to meet ALARA standards for radiation dose reduction. COMPARISON: 02/29/2020. FINDINGS: The ventricles and cortical sulci are diffusely prominent, compatible with age-related volume loss. There are confluent areas of abnormal, low attenuation in the periventricular white matter. This is consistent with chronic small vessel ischemic changes. There is no midline shift or mass-effect. No acute intra-axial hemorrhage is seen. There are no abnormal areas of increased or decreased density to suggest acute hemorrhage or edema. No extra-axial masses or collections are present. The bony calvarium is intact. The visualized paranasal sinuses show scattered mild mucosal thickening. The mastoid air cells are clear. IMPRESSION: 1. No acute intracranial abnormality. No CT evidence of mass, acute infarct or intracranial hemorrhage. 2. Chronic small vessel ischemic changes in the deep white matter. Results were discussed with Liliana Lyon by Dr. Medina at 2019 on 03/22/2020. Dictated by: Dictated on workstation # [id number]
[2020-03-22 20:36] LABS: ALANINE AMINOTRANSFERASE 13 U/L (0-55); ALBUMIN 4.7 GM/DL (3.2-4.5); ALKALINE PHOSPHATASE 79 U/L (40-136); BILIRUBIN,TOTAL 0.6 MG/DL (0.1-1.0); CALCIUM 9.5 MG/DL (8.5-10.1); CARBON DIOXIDE 18 MMOL/L (21-32); GLUCOSE 93 MG/DL (70-105); TOTAL PROTEIN 8.2 GM/DL (6.4-8.2)
--- NOTE | 2020-03-22 20:41 | Diagnostic Imaging Report ---
INDICATION: Cough, lethargic. COMPARISON: 02/29/2020. EXAMINATION: Single frontal view of the chest was obtained. FINDINGS: Normal heart size and pulmonary vascularity. Lungs show diffuse prominence of the interstitium. Appearance is stable compared to 02/29/2020. There is no new focal alveolar consolidation, large effusion or pneumothorax. Osseous structures show no gross acute abnormality. IMPRESSION: Stable diffuse prominence of the interstitium. Dictated by: Dictated on workstation # [id number]
[2020-03-22 20:46] LABS: CHLORIDE 94 MMOL/L (98-107); POTASSIUM 3.8 MMOL/L (3.6-5.0)
[2020-03-22 20:51] LABS: CREATININE SERUM 0.85 MG/DL (0.60-1.30); GFR ESTIMATED > 60
[2020-03-22 20:52] LABS: BUN/CREATININE RATIO 28
[2020-03-22 21:04] LABS: AMPHETAMINE SCREEN, URINE NEGATIVE (NEGATIVE); BARBITURATE SCREEN URINE NEGATIVE (NEGATIVE); BENZODIAZEPINES SCREEN URINE NEGATIVE (NEGATIVE); CANNABINOID SCREEN, URINE NEGATIVE (NEGATIVE); COCAINE SCREEN URINE NEGATIVE (NEGATIVE); METHADONE STAT NEGATIVE (NEGATIVE); METHAMPHETAMINE SCREEN URINE S NEGATIVE (NEGATIVE); OPIATE SCREEN URINE NEGATIVE (NEGATIVE); OXYCODONE STAT NEGATIVE (NEGATIVE); PROPOXYPHENE STAT NEGATIVE (NEGATIVE); TRICYCLIC ANTIDEPRESSANTS SCRE NEGATIVE (NEGATIVE)
[2020-03-22] MEDS ORDERED: NS IV 1000 ML 1,000 ML ONE (21:04)
[2020-03-22 21:05] LABS: ACETAMINOPHEN < 10 UG/ML (10-30)
[2020-03-22 21:06] LABS: SODIUM 124 MMOL/L (135-145)
[2020-03-22] MEDS ORDERED: NS IV 500 ML 500 ML IV ONE (21:15)
[2020-03-22] MEDS ORDERED: ASPIRIN 81 MG CHEW (CHILDREN'S ASA) PO ONE (21:15)
[2020-03-22] MEDS ORDERED: meTOprolol 5 MG/5 ML (LOPRESSOR) VIAL IV ONE (21:30)
--- NOTE | 2020-03-22 21:36 | NUR ---
BP prior to administration 162/97 HR-105
[2020-03-22 22:54] VITALS: BP 179/91
--- NOTE | 2020-03-22 22:58 | NUR ---
LEIF CORBETT admitted to room 411-1, with an admitting diagnosis of hyponatremia and new onset afib, on 03/22/20 from ED via C[facility], accompanied by STAFF.LEIF CORBETT introduced to surroundings, call light, bed controls, phone, TV, temperature control, lights, meal times, smoking policy, visitor policy, side rail policy, bathrooms and showers. Patient Rights given to patient in the handbook. LEIF CORBETT verbalizes understanding that [facility] is not responsible for the loss or damage to any personal effects or valuables that are kept in the patients posession during their hospitalization. The following Patient Care Plans were discussed with the. LEIF CORBETT verbalizes understanding of Interdisciplinary Patient Education. Patient and/or family were informed about the Rapid Response Team and its purpose.
[2020-03-22] MEDS: NS IV 1000 ML 1,000 ML IV SCH (23:44)
[2020-03-22] MEDS ORDERED: ACETAMINOPHEN 325 MG TABLET PO PRN (23:45)
[2020-03-22] MEDS ORDERED: ONDANSETRON 4 MG/2 ML (SDV) Z0FRAN IV PRN (23:45)
[2020-03-22] MEDS ORDERED: clonazePAM 0.5 MG (KlonoPIN) TAB PO PRN (23:45)
[2020-03-22 23:54] VITALS: BP 179/91
[2020-03-23 03:54] VITALS: BP 126/60
[2020-03-23] MEDS: inSUlin ASPART (NovoLOG) 1 UNIT/0.01 ML (CHARGE PER UNIT) SC SCH ×4 (05:46→20:42)
[2020-03-23 06:19] LABS: BASOPHILS % (AUTO) 0 % (0-10); EOSINOPHILS # (AUTO) 0.1 10^3/uL (0.0-0.3); EOSINOPHILS % (AUTO) 1 % (0-10); HEMATOCRIT 39 % (35-52); HEMOGLOBIN 13.8 g/dL (11.5-16.0); LYMPHOCYTES # (AUTO) 1.9 10^3/uL (1.0-4.0); LYMPHOCYTES % (AUTO) 26 % (12-44); MEAN CORPUSCULAR HEMOGLOBIN 33 pg (25-34); MEAN CORPUSCULAR HGB CONC 36 g/dL (32-36); MEAN CORPUSCULAR VOLUME 92 fL (80-99); MEAN PLATELET VOLUME 9.1 fL (9.0-12.2); MONOCYTES # (AUTO) 0.5 10^3/uL (0.0-1.0); MONOCYTES % (AUTO) 7 % (0-12); NEUTROPHILS # (AUTO) 4.8 10^3/uL (1.8-7.8); NEUTROPHILS % (AUTO) 65 % (42-75); PLATELET COUNT 112 10^3/uL (130-400); WHITE BLOOD COUNT 7.3 10^3/uL (4.3-11.0)
[2020-03-23 06:33] LABS: ALBUMIN 4.2 GM/DL (3.2-4.5); CHLORIDE 114 MMOL/L (98-107); POTASSIUM 3.8 MMOL/L (3.6-5.0); SODIUM 143 MMOL/L (135-145)
[2020-03-23 06:34] LABS: CALCIUM 9.3 MG/DL (8.5-10.1)
[2020-03-23 06:35] LABS: GLUCOSE 80 MG/DL (70-105); TOTAL PROTEIN 7.2 GM/DL (6.4-8.2)
[2020-03-23 06:36] LABS: CARBON DIOXIDE 17 MMOL/L (21-32)
[2020-03-23 06:37] LABS: BILIRUBIN,TOTAL 0.5 MG/DL (0.1-1.0)
[2020-03-23 06:39] LABS: ALKALINE PHOSPHATASE 66 U/L (40-136); GFR ESTIMATED > 60
[2020-03-23 06:40] LABS: BUN/CREATININE RATIO 28
[2020-03-23 06:42] LABS: ALANINE AMINOTRANSFERASE 11 U/L (0-55)
[2020-03-23 08:08] VITALS: BP 120/68
[2020-03-23] MEDS: NS IV 1000 ML 1,000 ML IV SCH ×3 (08:18→23:57)
[2020-03-23] MEDS: ASPIRIN 81 MG CHEW (CHILDREN'S ASA) PO SCH (08:18)
--- NOTE | 2020-03-23 11:35 | Occupational Therapy Eval ---
OT Evaluation-General/PLF Medical Diagnosis Admission Date Mar 22, 2020 at 21:35 Medical Diagnosis: hyponatremia, new onset afib Onset Date: Mar 22, 2020 Therapy Diagnosis Therapy Diagnosis: no deficits noted Height/Weight Height (Feet): 5 Height (Inches): 6 Weight (Pounds): 160 Weight (Ounces): 3.0 Precautions Precautions/Isolations: Fall Prevention, Standard Precautions Referral Physician: Rand Referral Reason: Evaluation/Treatment Medical History Pertinent Medical History: Atrial Fib, COPD, DM Additional Medical History schizophrenia, sleep difficulties, depression Current History EMS due to fall at home Reviewed History: Yes Social History Current Living Status: Alone ADL-Prior Level of Function SCALE: Activities may be completed with or without assistive devices. 2-Ulpzhjaxfa-jzqdibo completes the activity by him/herself with no assistance from a helper. 5-Set-up or Clean-up Assistance-helper sets up or cleans up; patient completes activity. [place] assists only prior to or following the activity. 4-Supervision or Touching Assistance-helper provides verbal cues and/or touching/steadying and/or contact guard assistance as patient completes activity. Assistance may be provided throughout the activity or intermittently. 3-Partial/Moderate Assistance-helper does LESS THAN HALF the effort. [place] lifts, holds or supports trunk or limbs, but provides less than half the effort. 2-Substantial/Maximal Assistance-helper does MORE THAN HALF the effort. [place] lifts or holds trunk or limbs and provides more than half the effort. 0-Nklrwwsng-ivdupk does ALL the effort. Patient does none of the effort to complete the activity. Or, the assistance of 2 or more helpers is required for the patient to complete the activity. If activity was not attempted, code reason: 7-Patient Refused. 9-Not Applicable-not attempted and the patient did not perform the activity before the current illness, exacerbation or injury. 10-Not Attempted due to Environmental Limitations-(lack of equipment, weather restraints, etc.). 88-Not Attempted due to Medical Conditions or Safety Concerns. ADL PLOF Comments Pt indicates she is able to complete all ADLS and functional mobility without AD/AE at home. She has a friend that comes over 3 times a day to check on her and watch movies. Pt indicates she doesn't need help with cooking, cleaning, bathing or dressing. Chart review indicates pt has a caregiver 3 hours a day Mon-Fri. Self Care: Needed Some Help Functional Cognition: Independent DME/Equipment: Bath Chair, Tub/Shower OT Current Status Subjective Pt standing at recliner holding onto IV pole, indicating she was going to the bathroom. Pt agreeable to OT evaluation/tx. Mental Status/Objective Attachments: IV Current Glasses/Contacts: Yes Hearing Aids: No Dentures/Partials: No Hand Dominance: Left Upper Extremity ROM WFL: LUE ~130 degrees shoulder flexion, R ~80 degrees shoulder flexion Upper Extremity Coordination WFL Upper Extremity Sensation WFL, pt denies tingling/numbness ADL-Treatment Eating (QC): 6 (Pt indicates she is able to cut her food, use utenils to bring food to mouth, and take drinks without difficulty.) On/Off Footwear (QC): 6 (Pt independently donned/doffed BLE gripper socks.) Toileting Hygiene (QC): 6 (Pt able to manage clothing, toilet, and perform hygiene.) Other Treatments Pt standing at recliner, ambulated to bathroom with SBA, no AD as OT managed IV pole. Pt completed toileting independently, then stood at sink to wash hands independently. OT noted pt's IV had came out during task, nursing notified. Pt returned to recliner independently, no AD and sat in recliner. OT educated pt on purpose and benefits of OT, she verbalized understanding. Pt provided information about PLOF and home set up, and participated in UE screen. Pt able to independently complete footwear. Pt indicates she feels like she is at her PLOF, she wants to go home. No skilled OT services indicated at this time. Post OT tx, pt seated in recliner, call light in reach and all needs met. Education OT Patient Education: Correct positioning, Modified ADL techniques, Progress toward Goal/Update tx plan, Purpose of tx/functional activities, Rehab process Teaching Recipient: Patient Teaching Methods: Discussion Response to Teaching: Verbalize Understanding OT Environmental Services Worker Goals Environmental Services Worker Goals 1=Demonstrate adherence to instructed precautions during ADL tasks. 2=Patient will verbalize/demonstrate understanding of assistive devices/mo difications for ADL. 3=Patient will improve strength/tolerance for activity to enable patient to perform ADL's. OT Education/Plan Problem List/Assessment Assessment: No Skilled OT Needs ID'd Pt independent with ADLs during tx, and pt feels like she is at her PLOF. No skilled OT services indicated at this time due to pt being at PLOF and independent with ADLs, d/c from OT. Discharge Recommendations Plan/Recommendations: Discharge/Goals Met Treatment Plan/Plan of Care Patient would benefit from OT for education, treatment and training to promote independence in ADL's, mobility, safety and/or upper extremity function for ADL's. Plan of Care: ADL Retraining Treatment Duration: Mar 23, 2020 Frequency: 1 time per week (cotyal onyly) Time/GCodes Start Time: 11:04 Stop Time: 11:16 Total Time Billed (hr/min): 12 Billed Treatment Time [id number] ADDISON OT Mar 23, 2020 11:35
[2020-03-23 11:45] VITALS: BP 124/69
--- NOTE | 2020-03-23 12:01 | History & Physical-Hospitalist ---
TERRY HDEZ MED STUDENT 03/23/20 1201: History of Present Illness HPI/Chief Complaint sodium levels stabilized from 124 to 143 complained of tooth pain and loose front tooth wasn't able to sleep and requested over the counter sleep aid that she takes at home Troponin ! levels were 0,133 so awaiting cardiology consult had significant wheezing and stated that it was from smoking so many years but has never been on O2 Source: patient Exam Limitations: no limitations Date Seen 03/23/20 Time Seen by a Provider: 09:00 Attending Physician Lauren Church DO PCP Johnna Britton DO Referring Physician Date of Admission Mar 22, 2020 at 21:35 Home Medications & Allergies Home Medications Reviewed patient Home Medication Reconciliation performed by pharmacy medication reconciliations general technician and/or nursing. Patients Allergies have been reviewed. Allergies Allergies Coded Allergies codeine (Verified Allergy, Mild, 11/01/12) Penicillins (Verified Allergy, Unknown, 11/01/12) sulindac (Verified Allergy, Unknown, 11/01/12) amitriptyline (Verified Adverse Reaction, Intermediate, 11/01/12) Past Tllzhsq-Arddsy-Qmqtyz Hx Past Med/Social Hx: Reviewed Nursing Past Med/Soc Hx Patient Social History Living Status: alone Alcohol Use: Denies Use Recreational Drug Use: No Smoking Status: Current Everyday Smoker Type Used: Cigarettes Recent Foreign Travel: No Contact w/other who traveled: No Recent Hopitalizations: No (BRONCHITIS) Recent Infectious Disease Expo: No Immunizations Up To Date Tetanus Booster (TDap): Unknown Date of Pneumonia Vaccine: Jan 20, 2019 Date of Influenza Vaccine: Feb 28, 2020 Past Medical History Reproductive: No Sexually Transmitted Disease: No HIV/AIDS: No Female Reproductive Disorders: Denies Gastrointestinal: Abdominal Hernia, Chronic Constipation Musculoskeletal: Chronic Back Pain Endocrine: Diabetes, Non-Insulin dep Loss of Vision: Denies Hearing Impairment: Denies Psychosocial: Sleep Difficulties, Schizophrenia, Depression History of Blood Disorders: No Adverse Reaction to Blood Ponce: No Family History Alzheimer's disease 19 FATHER Diabetes mellitus G8 SISTER Myocardial infarction 19 MOTHER G8 BROTHER Review of Systems Constitutional: no symptoms reported EENTM: dental problems, mouth pain Respiratory: wheezing Cardiovascular: no symptoms reported Gastrointestinal: no symptoms reported Genitourinary: incontinence Skin: no symptoms reported Psychiatric/Neurological: No Symptoms Reported Physical Exam Physical Exam Vital Signs Vital Signs - First Documented 03/22/20 20:07 Temp 35.5 Pulse 91 Resp 14 B/P (MAP) 180/93 (122) Pulse Ox 98 O2 Delivery Room Air Capillary Refill : Less Than 3 Seconds Height, Weight, BMI Height: 5'6" Weight: 160lbs. 3.0oz. 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 Assessment/Plan Admission Diagnosis AFIB/hyponatrimia/AMS/diabetes Assessment and Plan Assessment: wheezing incontinence flutuating sodium levels elevated Troponin I levels Plan: cardiology consult start nebulizer treatments remove catheter begin PT/OT Diagnosis/Problems Diagnosis/Problems (1) Wheezing (2) Hyponatremia Status: Acute Clinical Quality Measures DVT/VTE Risk/Contraindication: Risk Factor Score Per Nursin RFS Level Per Nursing on Admit: 4+=Very High Supervisory-Addendum Brief Verification & Attestation Participated in pt care: history, physical Personally performed: exam, history Care discussed with: Medical Student Procedures: n/a LAUREN CHURCH DO 03/24/20 0537: History of Present Illness HPI/Chief Complaint CC: Altered mental status with hyponatremia of 124 HPI: This is a 64yoWF clinic Pt of [facility] who is known to me from recent hospital stay, who presents with altered mental status and sodium level of 124, she also had new onset AFIB and elevated Troponin at 0.133. She is currently wheezing will initiate Duo-Neb TID and cardiology consultation is appreciated. We will DC the catheter and continue the PT and OT and monitor closely but she wants to go home soon. Past Dsnwwsy-Rabwat-Qypujv Hx Past Med/Social Hx: Reviewed Nursing Past Med/Soc Hx, Reviewed and Corrections made Patient Social History Marrital Status: single Employed/Student: unemployed Smoking Status: Current Everyday Smoker Past Medical History Cardiac: High Cholesterol, Hypertension Endocrine: Diabetes, Non-Insulin dep Psychosocial: Anxiety, Bipolar Family History Alzheimer's disease 19 FATHER Diabetes mellitus G8 SISTER Myocardial infarction 19 MOTHER G8 BROTHER Review of Systems Constitutional: see HPI Physical Exam Physical Exam General Appearance: No Apparent Distress, Anxious, Chronically ill Eyes: Right Eye Normal Inspection, Right Eye PERRL HEENT: PERRL/EOMI, Normal ENT Inspection, Pharynx Normal, Moist Mucous Membranes Neck: Full Range of Motion, Normal Inspection, Non Tender Respiratory: Chest Non Tender, Lungs Clear, Normal Breath Sounds, No Accessory Muscle Use, No Respiratory Distress Cardiovascular: Regular Rate, Rhythm, No Edema, No Gallop, No JVD, No Murmur, Normal Peripheral Pulses Gastrointestinal: Normal Bowel Sounds, No Organomegaly, No Pulsatile Mass, Non Tender, Soft Back: Normal Inspection, No CVA Tenderness, No Vertebral Tenderness Extremity: Normal Capillary Refill, Normal Inspection, Normal Range of Motion, Non Tender, No Calf Tenderness, No Pedal Edema Neurologic/Psychiatric: Alert, Oriented x3, No Motor/Sensory Deficits, Normal Mood/Affect Skin: Normal Color, Warm/Dry Lymphatic: No Adenopathy Assessment/Plan Admission Diagnosis Assessment: AMS Hyponatremia Elevated troponin DM Plan: Cardiology appreciated Home meds Monitor sugar Monitor sodium Admission Status: Inpatient Order (span 2 midnights) Reason for Inpatient Admission: AMS with hyponatremia Supervisory-Addendum Brief Verification & Attestation Participated in pt care: history, MDM, physical Personally performed: exam, history, MDM, supervision of care Care discussed with: Medical Student Procedures: n/a Results interpretation: Verified all documentation Verification and Attestation of Medical Student E/M Service A medical student performed and documented this service in my presence. I reviewed and verified all information documented by the medical student and made modifications to such information, when appropriate. I personally performed the physical exam and medical decision making. Lauren Church, Mar 24, 2020,05:37 TERRY HDEZ MED STUDENT Mar 23, 2020 12:01 LAUREN CHURCH DO Mar 24, 2020 05:37
--- NOTE | 2020-03-23 12:58 | Consultation-Cardiology ---
HPI-Cardiology Cardiology Consultation Date of Consultation 03/23/20 Date of Admission Time Seen by Provider: 09:00 HPI 64-year-old lady with history of anxiety, schizophrenia, it was reported by her neighbor that she slipped out of bed to the floor, her neighbor called 911, by the time they arrived she was ambulating to the bathroom without assistance. She denied any chest pain. No palpitation. No full syncope, reporting having significant vision loss. She follows simple commands and lives by herself. Home Medications & Allergies Allergies: Coded Allergies: codeine (Verified Allergy, Mild, 11/01/12) Penicillins (Verified Allergy, Unknown, 11/01/12) sulindac (Verified Allergy, Unknown, 11/01/12) amitriptyline (Verified Adverse Reaction, Intermediate, 11/01/12) Home Medication List Reviewed: Yes JVY-Fnbawx-Idtbid Hx Patient Social History Living Status: alone Alcohol Use: Denies Use Recreational Drug Use: No Smoking Status: Current Everyday Smoker Type Used: Cigarettes Recent Foreign Travel: No Recent Infectious Disease Expo: No Recent Hopitalizations: No (BRONCHITIS) Immunizations Up To Date Tetanus Booster (TDap): Unknown Date of Pneumonia Vaccine: Jan 20, 2019 Date of Influenza Vaccine: Feb 28, 2020 Past Medical History discussed below Family Medical History Family History: Alzheimer's disease 19 FATHER Diabetes mellitus G8 SISTER Myocardial infarction 19 MOTHER G8 BROTHER Review of Systems-General Review of Systems Constitutional: no symptoms reported EENTM: see HPI, dental problems, mouth pain Respiratory: see HPI, wheezing Cardiovascular: no symptoms reported, see HPI Gastrointestinal: no symptoms reported, see HPI Genitourinary: see HPI, incontinence Musculoskeletal: no symptoms reported, see HPI Skin: no symptoms reported Psychiatric/Neurological: No Symptoms Reported All Other Systems Reviewed Negative Unless Noted: Yes Reviewed Test Results Reviewed Test Results Lab Laboratory Tests Test 03/22/20 19:55 03/22/20 20:00 03/22/20 20:44 03/22/20 21:51 Range/Units White Blood Count 6.4 4.3-11.0 10^3/uL Red Blood Count 4.47 3.80-5.11 10^6/uL Hemoglobin 14.4 11.5-16.0 g/dL Hematocrit 41 35-52 % Mean Corpuscular Volume 92 80-99 fL Mean Corpuscular Hemoglobin 32 25-34 pg Mean Corpuscular Hemoglobin Concent 35 32-36 g/dL Red Cell Distribution Width 12.1 10.0-14.5 % Platelet Count 80 L 130-400 10^3/uL Mean Platelet Volume 8.6 L 9.0-12.2 fL Immature Granulocyte % (Auto) 1 % Neutrophils (%) (Auto) 70 42-75 % Lymphocytes (%) (Auto) 21 12-44 % Monocytes (%) (Auto) 6 0-12 % Eosinophils (%) (Auto) 1 0-10 % Basophils (%) (Auto) 1 0-10 % Neutrophils # (Auto) 4.5 1.8-7.8 10^3/uL Lymphocytes # (Auto) 1.4 1.0-4.0 10^3/uL Monocytes # (Auto) 0.4 0.0-1.0 10^3/uL Eosinophils # (Auto) 0.1 0.0-0.3 10^3/uL Basophils # (Auto) 0.0 0.0-0.1 10^3/uL Immature Granulocyte # (Auto) 0.0 0.0-0.1 10^3/uL Prothrombin Time 13.9 12.2-14.7 SEC INR Comment 1.0 0.8-1.4 Activated Partial Thromboplast Time 27 24-35 SEC Sodium Level 124 *L 135-145 MMOL/L Potassium Level 3.8 3.6-5.0 MMOL/L Chloride Level 94 L 98-107 MMOL/L Carbon Dioxide Level 18 L 21-32 MMOL/L Anion Gap 12 5-14 MMOL/L Blood Urea Nitrogen 24 H 7-18 MG/DL Creatinine 0.85 0.60-1.30 MG/DL Estimat Glomerular Filtration Rate > 60 BUN/Creatinine Ratio 28 Glucose Level 93 70-105 MG/DL Calcium Level 9.5 8.5-10.1 MG/DL Corrected Calcium 8.5-10.1 MG/DL Total Bilirubin 0.6 0.1-1.0 MG/DL Aspartate Amino Transf (AST/SGOT) 22 5-34 U/L Alanine Aminotransferase (ALT/SGPT) 13 0-55 U/L Alkaline Phosphatase 79 40-136 U/L Troponin I 0.071 H <0.028 NG/ML Total Protein 8.2 6.4-8.2 GM/DL Albumin 4.7 H 3.2-4.5 GM/DL Urine Opiates Screen NEGATIVE NEGATIVE Urine Oxycodone Screen NEGATIVE NEGATIVE Urine Methadone Screen NEGATIVE NEGATIVE Urine Propoxyphene Screen NEGATIVE NEGATIVE Acetaminophen Level < 10 L 10-30 UG/ML Urine Barbiturates Screen NEGATIVE NEGATIVE Ur Tricyclic Antidepressants Screen NEGATIVE NEGATIVE Urine Phencyclidine Screen NEGATIVE NEGATIVE Urine Amphetamines Screen NEGATIVE NEGATIVE Urine Methamphetamines Screen NEGATIVE NEGATIVE Urine Benzodiazepines Screen NEGATIVE NEGATIVE Urine Cocaine Screen NEGATIVE NEGATIVE Urine Cannabinoids Screen NEGATIVE NEGATIVE Serum Alcohol < 10 <10 MG/DL Urine Color YELLOW Urine Clarity CLEAR Urine pH 6.5 5-9 Urine Specific [place] <=1.005 1.016-1.022 Urine Protein NEGATIVE NEGATIVE Urine Glucose (UA) 3+ H NEGATIVE Urine Ketones NEGATIVE NEGATIVE Urine Nitrite NEGATIVE NEGATIVE Urine Bilirubin NEGATIVE NEGATIVE Urine Urobilinogen 0.2 < = 1.0 MG/DL Urine Leukocyte Esterase NEGATIVE NEGATIVE Urine RBC (Auto) TRACE-I NEGATIVE Urine RBC RARE /HPF Urine WBC RARE /HPF Urine Squamous Epithelial Cells RARE /HPF Urine Crystals NONE /LPF Urine Bacteria NEGATIVE /HPF Urine Casts NONE /LPF Urine Mucus NEGATIVE /LPF Urine Culture Indicated NO Coronavirus 2019 (MIKE) Negative Negative Glucometer 86 70-110 MG/DL Test 03/23/20 05:27 03/23/20 05:44 03/23/20 11:39 03/23/20 11:44 Range/Units White Blood Count 7.3 4.3-11.0 10^3/uL Red Blood Count 4.23 3.80-5.11 10^6/uL Hemoglobin 13.8 11.5-16.0 g/dL Hematocrit 39 35-52 % Mean Corpuscular Volume 92 80-99 fL Mean Corpuscular Hemoglobin 33 25-34 pg Mean Corpuscular Hemoglobin Concent 36 32-36 g/dL Red Cell Distribution Width 12.4 10.0-14.5 % Platelet Count 112 L 130-400 10^3/uL Mean Platelet Volume 9.1 9.0-12.2 fL Immature Granulocyte % (Auto) 0 % Neutrophils (%) (Auto) 65 42-75 % Lymphocytes (%) (Auto) 26 12-44 % Monocytes (%) (Auto) 7 0-12 % Eosinophils (%) (Auto) 1 0-10 % Basophils (%) (Auto) 0 0-10 % Neutrophils # (Auto) 4.8 1.8-7.8 10^3/uL Lymphocytes # (Auto) 1.9 1.0-4.0 10^3/uL Monocytes # (Auto) 0.5 0.0-1.0 10^3/uL Eosinophils # (Auto) 0.1 0.0-0.3 10^3/uL Basophils # (Auto) 0.0 0.0-0.1 10^3/uL Immature Granulocyte # (Auto) 0.0 0.0-0.1 10^3/uL Sodium Level 143 135-145 MMOL/L Potassium Level 3.8 3.6-5.0 MMOL/L Chloride Level 114 #H 98-107 MMOL/L Carbon Dioxide Level 17 L 21-32 MMOL/L Anion Gap 12 5-14 MMOL/L Blood Urea Nitrogen 22 H 7-18 MG/DL Creatinine 0.80 0.60-1.30 MG/DL Estimat Glomerular Filtration Rate > 60 BUN/Creatinine Ratio 28 Glucose Level 80 70-105 MG/DL Calcium Level 9.3 8.5-10.1 MG/DL Corrected Calcium 9.1 8.5-10.1 MG/DL Total Bilirubin 0.5 0.1-1.0 MG/DL Aspartate Amino Transf (AST/SGOT) 23 5-34 U/L Alanine Aminotransferase (ALT/SGPT) 11 0-55 U/L Alkaline Phosphatase 66 40-136 U/L Troponin I 0.133 H <0.028 NG/ML Total Protein 7.2 6.4-8.2 GM/DL Albumin 4.2 3.2-4.5 GM/DL Glucometer 80 94 86 70-110 MG/DL Physical Exam Physical Exam Vital Signs Vital Signs - First Documented 03/22/20 20:07 Temp 35.5 Pulse 91 Resp 14 B/P (MAP) 180/93 (122) Pulse Ox 98 O2 Delivery Room Air Capillary Refill : Less Than 3 Seconds Height, Weight, BMI Height: 5'6" Weight: 160lbs. 3.0oz. 72.986530zd; 24.59 BMI Method:Stated General Appearance: No Apparent Distress, WD/WN Eyes: Bilateral Eye Normal Inspection, Bilateral Eye PERRL HEENT: PERRL/EOMI, TMs Normal, Normal ENT Inspection, Pharynx Normal Neck: Full Range of Motion Respiratory: Chest Non Tender, Wheezing Cardiovascular: Regular Rate, Rhythm, No Edema, No Gallop, No JVD, No Murmur, Normal Peripheral Pulses Gastrointestinal: Normal Bowel Sounds, No Organomegaly, No Pulsatile Mass, Non Tender, Soft Back: Normal Inspection, No CVA Tenderness, No Vertebral Tenderness Extremity: Normal Capillary Refill, Normal Inspection, Normal Range of Motion, Non Tender, No Calf Tenderness Neurologic/Psychiatric: Alert, Oriented x3, No Motor/Sensory Deficits, Normal 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 Continue to monitor Mild elevation in troponin, non-ST elevation myocardial infarction, no active chest pain, no acute EKG changes. I am planning to evaluate Lexiscan stress t est in the morning. Started on aspirin and monitor Hypertension, monitor blood pressure History of syncope in the past, no reported syncope, questionable near syncopal episode. History of schizophrenia, managed and followed by primary care physician Clinical Quality Measures DVT/VTE Risk/Contraindication: Risk Factor Score Per Nursin RFS Level Per Nursing on Admit: 4+=Very High KEVIN CRAMER MD Mar 23, 2020 12:58
[2020-03-23] MEDS ORDERED: REGADENOSON 0.4 MG/5 ML SYR (LEXISCAN) IV ONE (13:00)
[2020-03-23] MEDS: RT-ALBUTEROL/IPRATROPIUM 3 ML (DUONEB) VIAL INH SCH ×3 (13:27→22:24)
--- NOTE | 2020-03-23 13:50 | NUR ---
CM/SS: Visit with pt as per Social Service consult related to Management vs snf Care Placement. Plan: Pt is from home. It is likely she will return there when deemed appropriate. Pt has home community based services in the home for 17 hours per week. Summary: Pt reports she is from home and that she has hours in the home. She reports she is able to manage it at this time. She reports just having some issues with falling and she wet on her self times two time, before coming to the hospital. She feels as if she can manage back at home with the hours in place. She has child care group leader [place] with [facility]. This worker will reach out to [place] - [facility] Care worker.
--- NOTE | 2020-03-23 14:06 | Physical Therapy Evaluation ---
PT Evaluation-General Medical Diagnosis Admission Date Mar 22, 2020 at 21:35 Medical Diagnosis: hyponatremia, new onset afib Onset Date: Mar 22, 2020 Therapy Diagnosis Therapy Diagnosis: debility Height/Weight Height (Feet): 5 Height (Inches): 6 Weight (Pounds): 160 Weight (Ounces): 3.0 Precautions Precautions/Isolations: Fall Prevention, Standard Precautions Referral Physician: Rand Reason for Referral: Evaluation/Treatment Medical History Pertinent Medical History: Atrial Fib, COPD, DM Additional Medical History schizophrenia Current History EMS secondary to fall at home and ambulated to EMS Reviewed History: Yes Social History Home: Apartment Current Living Status: Alone Entry Into Home: Level Entry Prior Prior Level of Function SCALE: Activities may be completed with or without assistive devices. 5-Xetidxusbd-fuqccad completes the activity by him/herself with no assistance from a helper. 5-Set-up or Clean-up Assistance-helper sets up or cleans up; patient completes activity. [place] assists only prior to or following the activity. 4-Supervision or Touching Assistance-helper provides verbal cues and/or touching/steadying and/or contact guard assistance as patient completes activity. Assistance may be provided throughout the activity or intermittently. 3-Partial/Moderate Assistance-helper does LESS THAN HALF the effort. [place] lifts, holds or supports trunk or limbs, but provides less than half the effort. 2-Substantial/Maximal Assistance-helper does MORE THAN HALF the effort. [place] lifts or holds trunk or limbs and provides more than half the effort. 3-Jknrgtrzu-mvpwfg does ALL the effort. Patient does none of the effort to complete the activity. Or, the assistance of 2 or more helpers is required for the patient to complete the activity. If activity was not attempted, code reason: 7-Patient Refused. 9-Not Applicable-not attempted and the patient did not perform the activity before the current illness, exacerbation or injury. 10-Not Attempted due to Environmental Limitations-(lack of equipment, weather restraints, etc.). 88-Not Attempted due to Medical Conditions or Safety Concerns. Bed Mobility: 6 Transfers (B,C,W/C): 6 Gait: 6 Indoor Mobility (Ambulation): Independent Stairs: Not Applicalbe Prior Devices Use: None PT Evaluation-Current Subjective Patient agrees to PT. Objective Patient Orientation: Person, Time, Situation ROM/Strength ROM Lower Extremities bilateral LE WFL Strength Lower Extremities 4/5 grossly bilateral LE Integumentary/Posture Integumentary refer to nursing notes Bowel Incontinence: No Bladder Incontinence: No Posture WFL Neuromuscular (Tone, Coordination, Reflexes) grossly intact Sensory Vision: Functional Hearing: Functional Hand Dominance: Left Sensation Right Lower Extremit: Intact Sensation Left Lower Extremity: Intact Transfers Roll Left to Right (QC): 6 Sit to Lying (QC): 6 Lying to Sitting/Side of Bed(Q: 6 Sit to Stand (QC): 6 Chair/Hoi-ql-Ksmda Xfer(QC): 6 Gait Does the Patient Walk?: Yes Mode of Locomotion: Walk Anticipated Mode of Locomotion: Walk Walk 10 feet (QC): 6 Walk 50 ft with 2 Turns(QC): 6 Walk 150 ft (QC): 6 Balance Sitting Static: Normal Sitting Dynamic: Normal Standing Static: Normal Standing Dynamic: Normal Assessment/Needs 64 y.o. female, is currently at independent [facility] with all gross motor skills and does not require skilled therapy intervention. Rehab Potential: Fair PT Plan Treatment/Plan Treatment Plan: Discontinue PT, goals met Treatment Duration: Mar 23, 2020 Frequency: 1 time per week Estimated Hrs Per Day: .25 hour per day Patient and/or Family Agrees t: Yes Time/GCodes Time In: 1320 Time Out: 1332 Total Billed Treatment Time: 12 Total Billed Treatment 1 visit EVModC 12 min SAI COUCH PT Mar 23, 2020 14:06
[2020-03-23] MEDS ORDERED: DOCU100C37 PO (14:07)
[2020-03-23] MEDS ORDERED: SITA100T12 PO (14:07)
[2020-03-23] MEDS ORDERED: CANA300T PO (14:07)
[2020-03-23] MEDS ORDERED: HALO10TA PO ×2 (14:07)
[2020-03-23] MEDS ORDERED: CETI10TA17 PO (14:07)
[2020-03-23] MEDS ORDERED: OMEP40CA27 PO (14:07)
[2020-03-23] MEDS ORDERED: GLIM2TAB4 PO (14:07)
[2020-03-23] MEDS ORDERED: FENO135C4 PO (14:07)
[2020-03-23] MEDS ORDERED: PALI9TAB4 PO (14:07)
--- NOTE | 2020-03-23 14:09 | NUR ---
SPOKE WITH THE PT, WENT THRU THE EXT MED HISTORY AND CALLED [facility] TO COMPLETE THE MED REC THE PT LET ME KNOW RAE RN AT [facility] SETS UP ALL HER MEDICATION. I SPOKE WITH RAE AND VERIFIED THIS. RAE VERBALLY GAVE ME THE MED LIST SHE HAS AND TOLD ME HOW SHE SETS UP THE PTS MEDICATIONS HALOPERIDOL 10MG- DIRECTIONS PER EXT MED HISTORY SHOW 1 & TABS BID BUT ACCORDING TO RAE PT IS NOW TAKING TAB (5MG) DAILY AND 10MG HS TRIAZOLAM IS ON THE EXT MED HISTORY BUT IT WAS DISCONTINUED LAST WEEK OTC MEDS: DOCUSATE PRN
--- NOTE | 2020-03-23 14:12 | NUR ---
[phone] She is able to verify that she has worked with the pt for a few years and that she has flat affect, and she has been able to manage at home. She does have [facility] in place. Face time with worker so that pt can talk with her. Pt is able to update worker on her current status. Quita is open at this time to reassess pt's hours when she is discharged from the hospital. This worker will follow up.
--- NOTE | 2020-03-23 15:14 | NUR ---
RD ASSESSMENT PMHx: COPD; chronic constipation; DM; schizophrenia; PT INTERACTION: Pt was awake and pleasant during nutrition assessment. Note pt has AMS and was a poor historian. Pt states current appetite is okay. Note PO intake 100% x1meal, per chart review. Pt states she tries to avoid fats in her current diet at home, and has some issues with chewing/swallowing food d/t poor dentition. Pt states some recent issues with diarrhea, and that her last BM was 03/22. Note pt not currently on bowel regimen per chart review. Pt states recent wt loss and that her current wt is 133#. Note current wt of 151#, and note unable to determine recent wt hx, per chart review. When asked about current DM management: "It's pretty good... my A1c is probably high." Note unable to determine recent HbA1c, per chart review. ABNORMAL NUTRITION-RELATED LAB VALUES LOW: HIGH: Cl 114; BUN 22; Est. kcal needs: 6499-7302 kcal | 25-30 kcal/kg Est. Pro needs: 55-68 g Pro | 0.8-1.0 g Pro/kg PES STATEMENT: Inadequate oral intake (NI-2.1) related to loss of appetite and diarrhea, as evidenced by pt interview. INTERVENTION: Continue with current diet order of CHO 60g/m 3snack diet. Did not offer diet education on DM management d/t pt's AMS. May attempt to offer prior to discharge. Will continue to follow and reassess as pt needs, intake, and status change. Richardson RAMOS, MS RD LD [phone] cell
[2020-03-23 15:35] VITALS: BP 135/60
[2020-03-23 19:58] VITALS: BP 134/62
[2020-03-23] MEDS ORDERED: diphenhydrAMINE 25 MG TAB (BENADRYL) PO PRN (20:15)
[2020-03-24 00:04] VITALS: BP 129/60
[2020-03-24] MEDS: RT-ALBUTEROL/IPRATROPIUM 3 ML (DUONEB) VIAL INH SCH ×4 (02:33→15:40)
[2020-03-24 04:43] VITALS: BP 138/62
[2020-03-24] MEDS: inSUlin ASPART (NovoLOG) 1 UNIT/0.01 ML (CHARGE PER UNIT) SC SCH ×2 (05:03→12:38)
[2020-03-24 05:39] LABS: BASOPHILS % (AUTO) 1 % (0-10); EOSINOPHILS # (AUTO) 0.1 10^3/uL (0.0-0.3); EOSINOPHILS % (AUTO) 2 % (0-10); HEMATOCRIT 36 % (35-52); HEMOGLOBIN 12.2 g/dL (11.5-16.0); LYMPHOCYTES % (AUTO) 49 % (12-44); MEAN CORPUSCULAR HEMOGLOBIN 33 pg (25-34); MEAN CORPUSCULAR HGB CONC 34 g/dL (32-36); MEAN CORPUSCULAR VOLUME 98 fL (80-99); MEAN PLATELET VOLUME 8.9 fL (9.0-12.2); MONOCYTES # (AUTO) 0.4 10^3/uL (0.0-1.0); MONOCYTES % (AUTO) 7 % (0-12); NEUTROPHILS # (AUTO) 2.4 10^3/uL (1.8-7.8); NEUTROPHILS % (AUTO) 40 % (42-75); PLATELET COUNT 92 10^3/uL (130-400)
[2020-03-24] MEDS ORDERED: DOCUSATE SODIUM 100 MG (COLACE) CAP PO PRN (05:45)
[2020-03-24 05:47] LABS: ALBUMIN 3.7 GM/DL (3.2-4.5); CHLORIDE 114 MMOL/L (98-107); POTASSIUM 3.8 MMOL/L (3.6-5.0); SODIUM 138 MMOL/L (135-145)
[2020-03-24 05:48] LABS: CALCIUM 8.7 MG/DL (8.5-10.1)
[2020-03-24 05:49] LABS: GLUCOSE 90 MG/DL (70-105); TOTAL PROTEIN 6.5 GM/DL (6.4-8.2)
[2020-03-24 05:51] LABS: BILIRUBIN,TOTAL 0.4 MG/DL (0.1-1.0); CARBON DIOXIDE 17 MMOL/L (21-32)
[2020-03-24 05:53] LABS: ALKALINE PHOSPHATASE 60 U/L (40-136); CREATININE SERUM 0.89 MG/DL (0.60-1.30); GFR ESTIMATED > 60
[2020-03-24 05:54] LABS: BUN/CREATININE RATIO 28
[2020-03-24 05:56] LABS: ALANINE AMINOTRANSFERASE 8 U/L (0-55)
[2020-03-24] MEDS ORDERED: CATHETER FLUSH 10 ML SYR IV PRN (08:00)
[2020-03-24] MEDS ORDERED: REGADENOSON 0.4 MG/5 ML SYR (LEXISCAN) IV ONE (08:10)
[2020-03-24 08:19] VITALS: BP 165/79
--- NOTE | 2020-03-24 08:31 | Cardiology Progress Note ---
Subjective Date Seen by Provider: Mar 24, 2020 Time Seen by Provider: 08:27 Subjective/Events-last exam Patient down in heart center for stress test, denies any chest pain Review of Systems General: No Chills, No Night Sweats, No Fatigue, No Malaise, No Appetite, No Other HEENT: No Head Aches, No Visual Changes, No Eye Pain, No Ear Pain, No Dysphasia, No Sinus Congestion, No Post Nasal Drip, No Sore Throat, No Other Pulmonary: No Dyspnea, No Cough, No Pleuritic Chest Pain, No Other Cardiovascular: No: Chest Pain, Palpitations, Orthopnea, Paroxysmal Noc. Dyspnea, Edema, Lt Headedness, Other Objective-Cardiology Exam Last Set of Vital Signs Vital Signs 03/24/20 12:33 Pulse 67 Capillary Refill : Less Than 3 Seconds I&O Intake and Output 03/24/20 00:00 Intake Total 2400 ml Output Total 2850 ml Balance -450 ml Intake Oral 2400 ml Output Urine Total 2850 ml # Voids 5 General: Alert, Oriented X3, Cooperative HEENT: Atraumatic, PERRLA Neck: Supple, No JVD, No Thyromegaly Lungs: Clear to Auscultation, Normal Air Movement Heart: Regular Rate, Normal S1, Normal S2, No Murmurs Abdomen: Normal Bowel Sounds, Soft, No Tenderness, No Hepatosplenomegaly, No Masses Extremities: No Clubbing, No Cyanosis, No Edema, Normal Pulses, No Tenderness/Swelling Skin: No Rashes, No Breakdown, No Significant Lesion Neuro: Normal Gait, Normal Speech, Strength at 5/5 X4 Ext, Normal Tone, Sensation Intact Psych/Mental Status: Mood NL Results Lab Laboratory Tests 03/24/20 05:27 A/P-Cardiology Admission Diagnosis Generalized weakness Elevated troponin PAF HTN Assessment/Plan Generalized weakness and fall, has improved at this time. Continue to monitor Mild elevation in troponin, non-ST elevation myocardial infarction, no active chest pain, no acute EKG changes. Stress test done this morning showing no ischemia or infarct. No documented atrial fibrillation, review of patients EKGs showing SR with artifact. Hypertension, continue to monitor blood pressure History of syncope in the past, no reported syncope, questionable near syncopal episode. History of schizophrenia, managed and followed by primary care physician JF for discharge from cardiology standpoint. Patient was seen and evaluated with Estrella, examination performed, management plan was discussed, agree with the current scribed note, I made few changes to the note using Italic font Patient underwent stress test showing no significant ischemia or infarction on SPECT images On admission EKG there was suspicion of atrial fibrillation, after reviewing all her admission EKGs it showed multiple episodes of artifacts, she was in sinus rhythm during those episodes and not in atrial fibrillation. It was Mrs. interpreted by the computer as in A. fib. No need for any anticoagulation at this time Restart home blood pressure medication monitor blood pressure as an outpatient Arrange for follow-up as an outpatient Clinical Quality Measures DVT/VTE Risk/Contraindication: Risk Factor Score Per Nursin RFS Level Per Nursing on Admit: 4+=Very High ESTRELLA TRINIDAD Mar 24, 2020 08:31 KEVIN CRAMER MD Mar 24, 2020 13:33
[2020-03-24] MEDS ORDERED: LORATADINE (CLARITIN) 10 MG TAB PO SCH (09:00)
[2020-03-24] MEDS ORDERED: PALIPERIDONE 9 MG (INVEGA) TABLET NON-FORMULARY PO SCH (09:00)
[2020-03-24] MEDS ORDERED: PANTOPRAZOLE 40 MG (PROTONIX) TAB PO SCH (09:00)
[2020-03-24] MEDS ORDERED: LINAGLIPTIN (TRADJENTA) 5 MG TABLET PO SCH (09:00)
[2020-03-24] MEDS ORDERED: NON-FORMULARY MEDICATION 1 EA EA (Canagliflozin (Invokana) 300 MG) PO SCH (09:00)
[2020-03-24] MEDS ORDERED: HALOPERIDOL 5 MG (HALDOL) TAB PO SCH ×2 (09:00→21:00)
[2020-03-24 09:30] VITALS: BP 151/74
[2020-03-24] MEDS ORDERED: CLON0.5T4 PO (10:12)
[2020-03-24] MEDS ORDERED: ASPI-999 PO (10:12)
--- NOTE | 2020-03-24 10:13 | Discharge Summary ---
Discharge Summary Hospital Course Was the Problem List Reviewed?: Yes Problems/Dx: (1) Wheezing (2) Hyponatremia Status: Acute Hospital Course Date of Admission: Mar 22, 2020 at 21:35 Admission Diagnosis : Family Physician/Provider: Ashleigh Gracia Date of Discharge: 03/24/20 Discharge Diagnosis: AMS, wheezing, hyponatremia, elevated troponin Hospital Course: Hospital course: Pt had an uneventful hospital course, she was placed in observation due to hyponatremia, altered mental status, new onset AFIB and DM. Pt did have a cardiology consult and underwent a stress test. 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 I did hold her oral hypoglycemic agent due to continued hypoglycemia, so she was set for discharge as she requested. She lives in [place], her family is involved in her care and she does have caregivers. Labs and Pending Lab Test: Laboratory Tests 03/23/20 11:39: Glucometer 94 03/23/20 11:44: Glucometer 86 03/23/20 15:35: Glucometer 120H 03/23/20 20:04: Glucometer 161H 03/24/20 05:01: Glucometer 83 03/24/20 05:27: White Blood Count 6.0, Red Blood Count 3.72L, Hemoglobin 12.2, Hematocrit 36, Mean Corpuscular Volume 98, Mean Corpuscular Hemoglobin 33, Mean Corpuscular Hemoglobin Concent 34, Red Cell Distribution Width 13.3, Platelet Count 92L, Mean Platelet Volume 8.9L, Immature Granulocyte % (Auto) 0, Neutrophils (%) (Auto) 40L, Lymphocytes (%) (Auto) 49H, Monocytes (%) (Auto) 7, Eosinophils (%) (Auto) 2, Basophils (%) (Auto) 1, Neutrophils # (Auto) 2.4, Lymphocytes # (Auto) 3.0, Monocytes # (Auto) 0.4, Eosinophils # (Auto) 0.1, Basophils # (Auto) 0.0, Immature Granulocyte # (Auto) 0.0, Sodium Level 138, Potassium Level 3.8, Chloride Level 114H, Carbon Dioxide Level 17L, Anion Gap 7, Blood Urea Nitrogen 25H, Creatinine 0.89, Estimat Glomerular Filtration Rate > 60, BUN/Creatinine Ratio 28, Glucose Level 90, Calcium Level 8.7, Corrected Calcium 8.9, Total Bilirubin 0.4, Aspartate Amino Transf (AST/SGOT) 19, Alanine Aminotransferase (ALT/SGPT) 8, Alkaline Phosphatase 60, Total Protein 6.5, Albumin 3.7 Microbiology 03/22/20 Influenza Types A,B Antigen (GRIFFIN) - Final, Complete Home Meds Active Clonazepam 0.5 Mg Tablet 0.5 Mg PO Q8H PRN Aspirin 81 Mg Tab.chew 81 Mg PO DAILY@0900 Reported Docusate Sodium 100 Mg Capsule 100 Mg PO DAILY PRN Paliperidone ER (Paliperidone) 9 Mg Tab.er.24 9 Mg PO DAILY Glimepiride 2 Mg Tablet 2 Mg PO DAILY Cetirizine HCl 10 Mg Tablet 10 Mg PO DAILY Haloperidol 10 Mg Tablet 10 Mg PO HS Haloperidol 10 Mg Tablet 5 Mg PO DAILY TAKES OF A 10MG Invokana (Canagliflozin) 300 Mg Tablet 300 Mg PO DAILY Fenofibric Acid (Fenofibric Acid (Choline)) 135 Mg Capsule.dr 135 Mg PO DAILY Januvia (Sitagliptin Phosphate) 100 Mg Tablet 100 Mg PO DAILY Omeprazole 40 Mg Capsule.dr 40 Mg PO DAILY Assessment/Pt Instructions PCP 1 week Discharge Planning: <30 minutes discharge planning Discharge Physical Examination Vital Signs Vital Signs Date Time Temp Pulse Resp B/P (MAP) Pulse Ox O2 Delivery O2 Flow Rate FiO2 03/24/20 09:30 35.6 80 18 151/74 (99) 97 Room Air General Appearance: No Apparent Distress, WD/WN, Chronically ill Respiratory: Lungs Clear Cardiovascular: Regular Rate, Rhythm Neurologic/Psychiatric: Alert, Oriented x3 Allergies: Coded Allergies: codeine (Verified Allergy, Mild, 11/01/12) Penicillins (Verified Allergy, Unknown, 11/01/12) sulindac (Verified Allergy, Unknown, 11/01/12) amitriptyline (Verified Adverse Reaction, Intermediate, 11/01/12) Discharge Summary Date of Admission Mar 22, 2020 at 21:35 Date of Discharge Discharge Date: Mar 24, 2020 Admission Diagnosis Assessment: AMS Hyponatremia Elevated troponin DM Plan: Cardiology appreciated Home meds Monitor sugar Monitor sodium Discharge Diagnosis (1) Wheezing (2) Hyponatremia Status: Acute Clinical Quality Measures DVT/VTE Risk/Contraindication: Risk Factor Score Per Nursin RFS Level Per Nursing on Admit: 4+=Very High LAUREN CHURCH DO Mar 24, 2020 10:13
[2020-03-24] MEDS: ASPIRIN 81 MG CHEW (CHILDREN'S ASA) PO SCH (11:03)
--- NOTE | 2020-03-24 11:52 | Progress Note ---
TERRY HDEZ MED STUDENT 03/24/20 1152: Progress Note Haylie Torres is a 64 Y/O female that presented on 03/22 to [facility] by EMS after falling at home. Her problem list consists of AFIB/ hyponatrimia/ AMS/ and diabetes. During her stay her sodium levels were at 124 and then self corrected to 143 the nest day. After listening to her it is clear that she has psychogenic polydipsia. She stated that she drinks water all the time and even once talked about a dream she had were she drank 30 glasses of water consecutively. Today she had a cardiac stress test performed due to an elevated Troponin I of 0.133. Pending results of that procedure she will be discharged to go home. She has a caregiver for 3 hours each day Monday through Monday and also utilized [facility]. She was placed on a 2000cc water limit per day which will prevent her hyponatrimia. She also complains of urinary incontinence which prevents her from getting up after a fall. Adult briefs will be worn at home to help with this problem. JOJO CHURCH DO 03/25/20 0535: Supervisory-Addendum Brief Verification & Attestation Participated in pt care: history, MDM, physical Personally performed: exam, history, MDM, supervision of care Care discussed with: Medical Student Procedures: n/a Results interpretation: Verified all documentation Verification and Attestation of Medical Student E/M Service A medical student performed and documented this service in my presence. I reviewed and verified all information documented by the medical student and made modifications to such information, when appropriate. I personally performed the physical exam and medical decision making. Jojo Church, Mar 25, 2020,05:35 TERRY HDEZ MED STUDENT Mar 24, 2020 11:52 JOJO CHURCH DO Mar 25, 2020 05:35
[2020-03-24 12:00] VITALS: BP 127/70
--- NOTE | 2020-03-24 12:20 | NUR ---
CM/SS: Visited with pt as per her plan for discharge. Pt reports she is feeling better today. Plan: Pt is awaiting results from stress test, and then she can be discharged from the hospital. Summary: Pt is in bed at the time of the visit. She reports she had just wet her brief and needs it changed. The aide came in and checked on pt and reports she will assist her in changing her brief. Pt seems ok with that. Pt is able to verbalizes that she will need to get the test results to get home. Pt does have a ride home - her sister will be able to pick her up at 3pm after an appointment. Pt aware that this worker will notify her [facility] Care worker Q[facility]a that she will be discharging to day. Pt verbalizes understanding. This worker will follow up.
--- NOTE | 2020-03-24 13:13 | Cardiology Stress Test Report ---
Stress Test Report Date of Procedure/Referring: Date of Procedure: Mar 24, 2020 PCP Jojo Gordillo DO Admitting Physician Johnna Britton DO Indications: chest pain Baseline Blood Pressure: Blood Pressure Systolic: 127 Blood Pressure Diastolic: 70 Baseline Vitals Vital Signs Date Time Temp Pulse Resp B/P (MAP) Pulse Ox O2 Delivery O2 Flow Rate FiO2 03/22/20 20:07 35.5 91 14 180/93 (122) 98 Room Air Baseline EKG: Baseline EKG: normal sinus rhythm Summary After explaining the procedure to the patient, she signed a consent and then brought to the stress nuclear laboratory. Patient received 0.4 mg Lexiscan for stress test, ECG, heart rate and blood pressure were monitored continuously. Resting and stress dose of radio tracer were injected, imaging was acquired and reviewed in short axis, horizontal long axis and vertical long axis views. TID: 1 SSS: 3 SDS: 3 EF: 72 1. Patient tolerated Lexiscan well 2. Breast attenuation with no significant ischemia or infarction on SPECT images 3. Normal left ventricular size, EF 72 percent KEVIN CRAMER MD Mar 24, 2020 13:13
[2020-03-24] MEDS: NS IV 1000 ML 1,000 ML IV SCH (15:43)
[2020-03-24 18:04] VITALS: BP 127/70
[2020-03-24] MEDS ORDERED: FENOFIBRATE 134 MG (LOFIBRA) CAPSULE PO SCH (21:00)
== END 2020-03-24 16:16 | disposition home or self-care (01) ==
LOC: EDUNIT# 20:00 → ER 20:01 → 4TH 21:35
PROVIDERS: ADMIT Family Medicine; ATTEND Internal Medicine
DX: R06.2 Wheezing (principal); E87.1 Hypo-osmolality and hyponatremia; R41.82 Altered mental status, unspecified; R77.8 Other specified abnormalities of plasma proteins; I48.91 Unspecified atrial fibrillation; E11.9 Type 2 diabetes mellitus without complications; G89.29 Other chronic pain; F32.9 Major depressive disorder, single episode, unspecified; F20.9 Schizophrenia, unspecified; E78.00 Pure hypercholesterolemia, unspecified; F41.9 Anxiety disorder, unspecified; J44.9 Chronic obstructive pulmonary disease, unspecified; F17.210 Nicotine dependence, cigarettes, uncomplicated; M54.5 Low back pain; Z79.82 Long term (current) use of aspirin; Z79.899 Other long term (current) drug therapy; Z88.0 Allergy status to penicillin; Z88.5 Allergy status to narcotic agent; Z88.8 Allergy status to other drugs, medicaments and biological substances; Z20.828 Contact with and (suspected) exposure to other viral communicable diseases
CPT/HCPCS: 51702; 70450; 71045; 78452; 80053 ×3; 80306; 81000; 82962 ×3; 84484 ×2; 85025 ×3; 85610; 85730; 87804; 93005; 93017; 94640 ×2; 94760; 97162; 97165; 99284; A9502; G0480 ×2; U0002; 36415; 80320; 80329; 87635; G0378

== ENCOUNTER 2020-04-03 17:19 | Observation (INO) | payer MEDICAID ==
[~2020-04-03] VITALS: Ht 165 cm; Wt 66.2 kg
[~2020-04-03 17:19] MED LIST changes: +ASPI-999 PO; +CETI10TA17 PO; +CLON0.5T4 PO; +DOCU100C37 PO; +HALO10TA PO; +OMEP40CA27 PO; +PALI9TAB4 PO; +SITA100T12 PO
[2020-04-03] MEDS ORDERED: LACTATED RINGERS 1,000 ML IV ONE ×2 (17:37→18:30)
--- NOTE | 2020-04-03 17:37 | ED General ---
General Chief Complaint: Cardiac/General Problems Stated Complaint: ALTERED MENTAL STATUS Source of Information: Patient, EMS Exam Limitations: Physical Impairments (GATITO BLAND MD) History of Present Illness Date Seen by Provider: Apr 03, 2020 Time Seen by Provider: 17:23 Initial Comments Here by EMS with report of altered mental status. Apparently the building carpenter helper had called to check on her and she did not answer and nor did she answer the door as typical. He may contact with her and she was not acting well or right and not talking to him. He called EMS. Last known well time unknown. EMS arrived and patient noted to be shaking and not really talking well. Eyes are open and do appear to track but patient seems quite confused. Similar episode here previously related to hyponatremia and schizophrenia. Also noted to have blood sugar problems. Blood sugar in the field was 170s via fingerstick. EMS reports they noted what appeared to be atrial flutter on the monitor that resolved to sinus and this has been noticed in the past as well. Unknown injuries. Unknown recent illness. Patient not answering questions and unable to contribute to history. Timing/Duration: Other (Unknown) Severity: Moderate, Severe Modifying Factors: improves with Other (Unknown) (GATITO BLAND MD) Allergies and Home Medications Allergies Coded Allergies: codeine (Verified Allergy, Mild, 11/01/12) Penicillins (Verified Allergy, Unknown, 11/01/12) sulindac (Verified Allergy, Unknown, 11/01/12) amitriptyline (Verified Adverse Reaction, Intermediate, 11/01/12) Home Medications Aspirin 81 Mg Tab.chew, 81 MG PO DAILY@0900 Prescribed by: LAUREN CHURCH on 03/24/20 1012 Canagliflozin 300 Mg Tablet, 300 MG PO DAILY, (Reported) Cetirizine HCl 10 Mg Tablet, 10 MG PO DAILY, (Reported) Clonazepam 0.5 Mg Tablet, 0.5 MG PO Q8H PRN for ANXIETY Prescribed by: LAUREN CHURCH on 03/24/20 1012 Docusate Sodium 100 Mg Capsule, 100 MG PO DAILY PRN for CONSTIPATION-1ST LINE, (Reported) Fenofibric Acid (Choline) 135 Mg Capsule.dr, 135 MG PO DAILY, (Reported) Haloperidol 10 Mg Tablet, 5 MG PO DAILY, (Reported) TAKES OF A 10MG Haloperidol 10 Mg Tablet, 10 MG PO HS, (Reported) Omeprazole 40 Mg Capsule.dr, 40 MG PO DAILY, (Reported) Paliperidone 9 Mg Tab.er.24, 9 MG PO DAILY, (Reported) Sitagliptin Phosphate 100 Mg Tablet, 100 MG PO DAILY, (Reported) Patient Home Medication List Home Medication List Reviewed: Yes (GATITO BLAND MD) Review of Systems Review of Systems Constitutional: see HPI, chills Unable to complete review of systems due to altered mental status (GATITO BLAND MD) Past Oxcgpis-Aiitnt-Qfxqel Hx Past Med/Social Hx: Reviewed Nursing Past Med/Soc Hx (GATITO BLAND MD) Patient Social History Type Used: Cigarettes Recent Hopitalizations: No (BRONCHITIS) (GATITO BLAND MD) Immunizations Up To Date Tetanus Booster (TDap): Unknown Date of Pneumonia Vaccine: Jan 20, 2019 Date of Influenza Vaccine: Feb 28, 2020 (GATITO BLAND MD) Past Medical History Surgeries: No Respiratory: Yes Chronic Bronchitis, COPD Cardiac: No High Cholesterol, Hypertension Neurological: No Reproductive Disorders: No Female Reproductive Disorders: Denies Sexually Transmitted Disease: No HIV/AIDS: No Gastrointestinal: Yes Abdominal Hernia, Chronic Constipation Musculoskeletal: Yes Chronic Back Pain Endocrine: Yes Diabetes, Non-Insulin dep Loss of Vision: Denies Hearing Impairment: Denies Cancer: No Psychosocial: Yes Anxiety, Bipolar Integumentary: No Blood Disorders: No Adverse Reaction/Blood Tranf: No (GATITO BLAND MD) Family Medical History Reviewed Nursing Family Hx (GATITO BLAND MD) Alzheimer's disease 19 FATHER Diabetes mellitus G8 SISTER Myocardial infarction 19 MOTHER G8 BROTHER History per records review as patient has altered mental status (GATITO BLAND MD) Physical Exam Vital Signs Vital Signs - First Documented 04/03/20 17:21 Temp 34.5 Pulse 80 Resp 22 B/P (MAP) 174/92 (119) Pulse Ox 97 O2 Delivery Room Air (SARAN BOLTON MD) Vital Signs Capillary Refill : (GATITO BLAND MD) Height, Weight, BMI Height: 5'6" Weight: 160lbs. 3.0oz. 72.054154sd; 24.59 BMI Method:Stated General Appearance: Chronically ill Eyes: Bilateral Eye Normal Inspection, Bilateral Eye PERRL, Bilateral Eye EOMI HEENT: TMs Normal, Pharynx Normal Neck: Non Tender, Supple Respiratory: Lungs Clear, Normal Breath Sounds Cardiovascular: Regular Rate, Rhythm, No Murmur Gastrointestinal: Soft; No Distended, No Guarding; Other (Middle obesity) Back: Normal Inspection, No CVA Tenderness, Muscle Spasm Extremity: Non Tender, No Pedal Edema Neurologic/Psychiatric: Other (Awake but does not answer questions. Patient appears quite confused. Patient does have lip smacking gestures) Skin: Normal Color, Warm/Dry (GATITO BLAND MD) Focused Exam Lactate Level 04/03/20 18:08: Lactic Acid Level 1.30 (SARAN BOLTON MD) Lactic Acid Level Laboratory Tests Test 04/03/20 18:08 Lactic Acid Level 1.30 MMOL/L (0.50-2.00) (SARAN BOLTON MD) Progress/Results/Core Measures Suspected Sepsis SIRS Temperature: Pulse: Respiratory Rate: Blood Pressure / Mean: (GATITO BLAND MD) Results/Orders Lab Results Laboratory Tests Test 04/03/20 17:50 04/03/20 18:08 Range/Units Urine Color OTHER H Urine Clarity CLEAR Urine pH 6.5 5-9 Urine Specific Hamel <=1.005 1.016-1.022 Urine Protein NEGATIVE NEGATIVE Urine Glucose (UA) 3+ H NEGATIVE Urine Ketones NEGATIVE NEGATIVE Urine Nitrite NEGATIVE NEGATIVE Urine Bilirubin NEGATIVE NEGATIVE Urine Urobilinogen 0.2 < = 1.0 MG/DL Urine Leukocyte Esterase NEGATIVE NEGATIVE Urine RBC (Auto) NEGATIVE NEGATIVE Urine RBC NONE /HPF Urine WBC NONE /HPF Urine Squamous Epithelial Cells 0-2 /HPF Urine Crystals NONE /LPF Urine Bacteria NEGATIVE /HPF Urine Casts NONE /LPF Urine Mucus NEGATIVE /LPF Urine Culture Indicated NO White Blood Count 6.9 4.3-11.0 10^3/uL Red Blood Count 4.24 3.80-5.11 10^6/uL Hemoglobin 13.6 11.5-16.0 g/dL Hematocrit 38 35-52 % Mean Corpuscular Volume 90 80-99 fL Mean Corpuscular Hemoglobin 32 25-34 pg Mean Corpuscular Hemoglobin Concent 36 32-36 g/dL Red Cell Distribution Width 12.0 10.0-14.5 % Platelet Count 85 L 130-400 10^3/uL Mean Platelet Volume 9.1 9.0-12.2 fL Immature Granulocyte % (Auto) 1 % Neutrophils (%) (Auto) 66 42-75 % Lymphocytes (%) (Auto) 25 12-44 % Monocytes (%) (Auto) 7 0-12 % Eosinophils (%) (Auto) 1 0-10 % Basophils (%) (Auto) 1 0-10 % Neutrophils # (Auto) 4.6 1.8-7.8 10^3/uL Lymphocytes # (Auto) 1.7 1.0-4.0 10^3/uL Monocytes # (Auto) 0.5 0.0-1.0 10^3/uL Eosinophils # (Auto) 0.1 0.0-0.3 10^3/uL Basophils # (Auto) 0.0 0.0-0.1 10^3/uL Immature Granulocyte # (Auto) 0.0 0.0-0.1 10^3/uL Prothrombin Time 14.2 12.2-14.7 SEC INR Comment 1.1 0.8-1.4 Activated Partial Thromboplast Time 27 24-35 SEC D-Dimer 0.58 H 0.00-0.49 UG/ML Sodium Level 125 *L 135-145 MMOL/L Potassium Level 3.9 3.6-5.0 MMOL/L Chloride Level 97 L 98-107 MMOL/L Carbon Dioxide Level 17 L 21-32 MMOL/L Anion Gap 11 5-14 MMOL/L Blood Urea Nitrogen 33 H 7-18 MG/DL Creatinine 0.83 0.60-1.30 MG/DL Estimat Glomerular Filtration Rate > 60 BUN/Creatinine Ratio 40 Glucose Level 98 70-105 MG/DL Lactic Acid Level 1.30 0.50-2.00 MMOL/L Calcium Level 9.1 8.5-10.1 MG/DL Corrected Calcium 8.9 8.5-10.1 MG/DL Total Bilirubin 0.6 0.1-1.0 MG/DL Aspartate Amino Transf (AST/SGOT) 54 H 5-34 U/L Alanine Aminotransferase (ALT/SGPT) 16 0-55 U/L Alkaline Phosphatase 68 40-136 U/L Troponin I < 0.028 <0.028 NG/ML C-Reactive Protein High Sensitivity 1.67 H 0.00-0.50 MG/DL Total Protein 7.5 6.4-8.2 GM/DL Albumin 4.3 3.2-4.5 GM/DL TSH [place] Testing 1.66 0.35-4.94 UIU/ML (SARAN BOLTON MD) My Orders Orders - SARAN BOLTON MD Lactated Ringers (Lr 1000 Ml Iv Solution (04/03/20 18:30) Ed Iv/Invasive Line Start (04/03/20 18:53) Ns Iv 1000 Ml (Sodium Chloride 0.9%) (04/03/20 19:00) Enalaprilat Inj (Vasotec Inj) (04/03/20 19:15) (SARAN BOLTON MD) Medications Given in ED Current Medications Medications Dose Ordered Sig/Luann Route Start Time Stop Time Status Last Admin Dose Admin Lactated Ringer's 1,000 ml @ ud STK-MED ONCE IV 04/03/20 17:37 04/03/20 17:41 DC 04/03/20 18:20 1,000 MLS/HR Sodium Chloride 1,000 ml @ 200 mls/hr Q5H ONCE IV 04/03/20 19:00 04/03/20 23:59 04/03/20 19:04 200 MLS/HR (SARAN BOLTON MD) Vital Signs/I&O 04/03/20 17:21 Temp 34.5 Pulse 80 Resp 22 B/P (MAP) 174/92 (119) Pulse Ox 97 O2 Delivery Room Air (SARAN BOLTON MD) Vital Signs/I&O Capillary Refill : (GATITO BLAND MD) Progress Note : Progress Note Seen and evaluated. IV, labs, UA, chest x-ray, Beauchamp catheter and CT head ord ered. Patient urinated in the bed just after arrival. LR 1 L bolus. EKG ordered but patient is shivering making EKG unreadable. Sinus rhythm noted on monitor and flutter/artifact rhythm noted on EKG machine. We will use warm blankets and see if the shivering stops enough to allow for an appropriate EKG. Monitor patient. 1739: Patient's temperature was 94.1 Fahrenheit. Warm fluids will be applied as well as the warm blankets. (GATITO BLAND MD) Progress Note #1: Time: 19:11 Progress Note I assumed care of this patient from Dr. Bland at shift change. Labs and imaging were reviewed. Patient has hyponatremia. She has had a significant amount of urine output. She urinated in the bed with incontinence and then had approximately 1500 mL out by catheter before nursing staff clamped off the catheter. At this time she is alert and oriented x4. Her speech is muffled/mumbled. She does follow commands and moves all 4 extremities. Mentation is dulled and sluggish. She still is tremoring. This appearance is similar to my experience with her when she was admitted in February. 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 I have discussed the case with Dr. Church. We will restrict free fluid intake and run slow IV normal saline. We will run saline at 200 mL/h while in the ER and then decrease it to 75 mL/h. I am consulting social work as she may benefit from placement in a custodial where her medications and fluid intake can be monitored more closely. Progress Note #2: Time: 19:32 Progress Note Patient's blood pressure has been running persistently elevated. I had ordered a dose of Vasotec but it is not readily available. She does have a mildly elevated heart rate so we will use Lopressor instead. Hopefully her mental st atus will be improving shortly after receiving some normal saline and she will be able to take oral medications. (SARAN BOLTON MD) ECG Initial ECG Impression Date: Apr 03, 2020 Initial ECG Impression Time: 18:50 Initial ECG Rate: 89 Initial ECG Rhythm: Normal Sinus Comment Sinus rhythm with artifact. No ST elevation or depression. No significant abnormal intervals or axis deviation. (SARAN BOLTON MD) Diagnostic Imaging Diagonstic Imaging: Xray Plain Films/CT/US/NM/MRI: chest Comments Chest x-ray viewed by me and report reviewed. See report below: NAME: LEIF CORBETT MED REC#: [id number] PT STATUS: REG ER : 1955 PHYSICIAN: GATITO BLAND MD ADMIT DATE: 04/03/20/ER Signed Date of Exam:04/03/20 CHEST 1 VIEW, AP/PA ONLY EXAMINATION: Chest 1 view HISTORY: sepsis COMPARISON: Intact FINDINGS: The lungs are clear without edema or pneumonia. No pleural effusion or pneumothorax. Heart size is normal. IMPRESSION: 1. Clear lungs. Dictated by: Dictated on workstation # [id number] Dict: 04/03/201835 Trans: 04/03/201835 Kip [id number] Interpreted by: KIRT MASCORRO MD Electronically signed by: KIRT MASCORRO MD 04/03/201835 Diagonstic Imaging: CT Plain Films/CT/US/NM/MRI: head Comments CT head viewed by me and report reviewed. See report below: NAME: LEIF CORBETT [facility] REC#: [id number] PT STATUS: REG ER : 1955 PHYSICIAN: GATITO BLAND MD ADMIT DATE: 04/03/20/ER Signed Date of Exam:04/03/20 CT HEAD WO EXAMINATION: CT head without contrast. TECHNIQUE: Multiple contiguous axial images were obtained through the brain without the use of intravenous contrast. All CT scans use one or more of the following dose optimizing techniques: automated exposure control, MA and/or KvP adjustment based on a patient size and exam type, or iterative reconstruction. HISTORY: altered mental status COMPARISON: 03/22/2020 FINDINGS: The avilez-white matter differentiation is normal. No mass effect or midline shift. The ventricles are normal in size and configuration. Basilar cisterns are patent. There are no intra- or extra-axial fluid collections. There is no intracranial hemorrhage. The orbits are normal. Paranasal sinuses are normal. Mastoid air cells are clear. No soft tissue abnormality is seen. No osseus lesions or fractures are seen. IMPRESSION: 1. No acute intracranial abnormality. Dictated by: Dictated on workstation # [id number] Dict: 04/03/201836 Trans: 04/03/201837 Kip [id number] Interpreted by: KIRT MASCORRO MD Electronically signed by: KIRT MASCORRO MD 04/03/201837 (SARAN BOLTON MD) Departure Communication (Admissions) Time/Spoke to Admitting Phy: 19:00 Dr. Church (SARAN BOLTON MD) Impression Primary Impression: Hyponatremia Additional Impressions: Altered mental status Qualified Codes: R41.82 - Altered mental status, unspecified Labile hypertension Disposition: ADMITTED INPATIENT Condition: Stable Admissions Decision to Admit Reason: Admit from ER (General) Decision to Admit/Date: Apr 03, 2020 Time/Decision to Admit Time: 18:00 (SARAN BOLTON MD) Departure-Patient Inst. Referrals: ADAM BEGUM DO (PCP) Primary Care Physician ANA POST (Family) Primary Care Physician GATITO BLAND MD Apr 03, 2020 17:37 SARAN BOLTON MD Apr 03, 2020 18:51
[2020-04-03 17:55] LABS: BILIRUBIN,URINE NEGATIVE (NEGATIVE); CLARITY,URINE CLEAR; COLOR,URINE OTHER; GLUCOSE, URINE (UA) 3+ (NEGATIVE); KETONES,URINE NEGATIVE (NEGATIVE); LEUKOCYTE ESTERASE ,URINE NEGATIVE (NEGATIVE); NITRITE,URINE NEGATIVE (NEGATIVE); PH,URINE 6.5 (5-9); PROTEIN,URINE NEGATIVE (NEGATIVE)
[2020-04-03 18:04] LABS: BACTERIA,URINE NEGATIVE /HPF; SQUAMOUS EPITHELIAL CELL,UR 0-2 /HPF
[2020-04-03 18:17] LABS: BASOPHILS % (AUTO) 1 % (0-10); EOSINOPHILS # (AUTO) 0.1 10^3/uL (0.0-0.3); EOSINOPHILS % (AUTO) 1 % (0-10); HEMATOCRIT 38 % (35-52); HEMOGLOBIN 13.6 g/dL (11.5-16.0); LYMPHOCYTES # (AUTO) 1.7 10^3/uL (1.0-4.0); LYMPHOCYTES % (AUTO) 25 % (12-44); MEAN CORPUSCULAR HEMOGLOBIN 32 pg (25-34); MEAN CORPUSCULAR HGB CONC 36 g/dL (32-36); MEAN CORPUSCULAR VOLUME 90 fL (80-99); MEAN PLATELET VOLUME 9.1 fL (9.0-12.2); MONOCYTES # (AUTO) 0.5 10^3/uL (0.0-1.0); MONOCYTES % (AUTO) 7 % (0-12); NEUTROPHILS # (AUTO) 4.6 10^3/uL (1.8-7.8); NEUTROPHILS % (AUTO) 66 % (42-75); PLATELET COUNT 85 10^3/uL (130-400); WHITE BLOOD COUNT 6.9 10^3/uL (4.3-11.0)
[2020-04-03 18:28] LABS: ALBUMIN 4.3 GM/DL (3.2-4.5); CHLORIDE 97 MMOL/L (98-107); POTASSIUM 3.9 MMOL/L (3.6-5.0)
[2020-04-03 18:29] LABS: CALCIUM 9.1 MG/DL (8.5-10.1)
[2020-04-03 18:31] LABS: GLUCOSE 98 MG/DL (70-105); TOTAL PROTEIN 7.5 GM/DL (6.4-8.2)
[2020-04-03 18:32] LABS: BILIRUBIN,TOTAL 0.6 MG/DL (0.1-1.0); CARBON DIOXIDE 17 MMOL/L (21-32); FIBRIN DEGRADATION PRODUCTS 0.58 UG/ML (0.00-0.49); INR 1.1 (0.8-1.4); PROTHROMBIN TIME PATIENT 14.2 SEC (12.2-14.7)
[2020-04-03 18:34] LABS: ALKALINE PHOSPHATASE 68 U/L (40-136); CREATININE SERUM 0.83 MG/DL (0.60-1.30); GFR ESTIMATED > 60
[2020-04-03 18:35] LABS: BUN/CREATININE RATIO 40
[2020-04-03 18:37] LABS: ALANINE AMINOTRANSFERASE 16 U/L (0-55)
--- NOTE | 2020-04-03 18:37 | Diagnostic Imaging Report ---
EXAMINATION: Chest 1 view HISTORY: sepsis COMPARISON: Intact FINDINGS: The lungs are clear without edema or pneumonia. No pleural effusion or pneumothorax. Heart size is normal. IMPRESSION: 1. Clear lungs. Dictated by: Dictated on workstation # [email or web address]
--- NOTE | 2020-04-03 18:39 | Diagnostic Imaging Report ---
EXAMINATION: CT head without contrast. TECHNIQUE: Multiple contiguous axial images were obtained through the brain without the use of intravenous contrast. All CT scans use one or more of the following dose optimizing techniques: automated exposure control, MA and/or KvP adjustment based on a patient size and exam type, or iterative reconstruction. HISTORY: altered mental status COMPARISON: 03/22/2020 FINDINGS: The avilez-white matter differentiation is normal. No mass effect or midline shift. The ventricles are normal in size and configuration. Basilar cisterns are patent. There are no intra- or extra-axial fluid collections. There is no intracranial hemorrhage. The orbits are normal. Paranasal sinuses are normal. Mastoid air cells are clear. No soft tissue abnormality is seen. No osseus lesions or fractures are seen. IMPRESSION: 1. No acute intracranial abnormality. Dictated by: Dictated on workstation # [email or web address]
[2020-04-03 18:42] LABS: SODIUM 125 MMOL/L (135-145)
[2020-04-03 18:57] LABS: TSH (THYROID ANALYZER) 1.66 UIU/ML (0.35-4.94)
[2020-04-03] MEDS ORDERED: NS IV 1000 ML 1,000 ML IV ONE (19:00)
[2020-04-03] MEDS ORDERED: ENALAPRILAT 1.25 MG/1 ML (VASOTEC) 1 ML VIAL IV ONE (19:15)
[2020-04-03] MEDS ORDERED: meTOprolol 5 MG/5 ML (LOPRESSOR) VIAL IV ONE (19:45)
[2020-04-03] MEDS ORDERED: DOCUSATE SODIUM 100 MG (COLACE) CAP PO PRN (20:00)
[2020-04-03] MEDS ORDERED: hydrALAZINE (APESOLINE) 20 MG/ML VIAL IV PRN (20:00)
[2020-04-03] MEDS ORDERED: LOPERAMIDE 2 MG (IMODIUM) TABLET PO PRN (20:00)
[2020-04-03] MEDS ORDERED: cloNIDine 0.1 MG (CATAPRES) TAB PO PRN (20:00)
[2020-04-03] MEDS ORDERED: HALOPERIDOL 5 MG/ML (HALDOL) VIAL IM PRN (20:00)
[2020-04-03] MEDS ORDERED: MELATONIN 3 MG TABLET PO PRN (20:00)
[2020-04-03] MEDS ORDERED: NITROGLYCERIN 2% OINT 1 GM UNIT DOSE PACKET TOP PRN (20:00)
[2020-04-03] MEDS ORDERED: CALCIUM CARBONATE 500 MG (TUMS) TAB.CHEW PO PRN (20:00)
[2020-04-03] MEDS ORDERED: diphenhydrAMINE 25 MG TAB (BENADRYL) PO PRN (20:00)
[2020-04-03] MEDS ORDERED: ONDANSETRON 4 MG/2 ML (SDV) Z0FRAN IVP PRN (20:00)
[2020-04-03] MEDS ORDERED: HYDROcodone/APAP 5 MG/325 MG (LORTAB) TAB PO PRN (20:00)
[2020-04-03] MEDS ORDERED: fentaNYL INJECTION 100 MCG/2 ML AMP IVP PRN (20:00)
[2020-04-03] MEDS: NS IV 1000 ML 1,000 ML IV SCH (20:10)
[2020-04-03 20:16] VITALS: BP 153/75
[2020-04-03] MEDS ORDERED: ACETAMINOPHEN 325 MG TABLET PO PRN (20:30)
[2020-04-03] MEDS ORDERED: ENOXAPARIN 40 MG/0.4 ML (LOVENOX) SYR SC SCH (21:00)
[2020-04-03 21:33] VITALS: BP 153/75
[2020-04-03] MEDS ORDERED: RT-ALBUTEROL/IPRATROPIUM 3 ML (DUONEB) VIAL INH PRN (22:00)
--- NOTE | 2020-04-03 22:31 | NUR ---
This RN contacted Dr Gordillo to clarify orders. Dr Gordillo verified that patient is to have a regular diet, and NS at 60 ml/hr.
[2020-04-03] MEDS: amLODIPine 5 MG (NORVASC) TAB PO SCH (22:49)
[2020-04-03] MEDS: SENNA W/DOCUSATE (SENOKOT S) TABLET PO SCH (22:49)
[2020-04-03] MEDS: LORazepam INJ 2 MG/ML (ATIVAN) VIAL IVP PRN (22:50)
[2020-04-04] VITALS: BP 115/56
--- NOTE | 2020-04-04 | NUR ---
LEIF CORBETT admitted to room 405-1, with an admitting diagnosis of hyponatremia and altered mental status , on 04/03/20 from AM via bed, accompanied by staff. LEIF CORBETT introduced to surroundings, call light, bed controls, phone, TV, temperature control, lights, meal times, smoking policy, visitor policy, side rail policy, bathrooms and showers. Patient Rights given to patient in the handbook. LEIF CORBETT verbalizes understanding that [facility] is not responsible for the loss or damage to any personal effects or valuables that are kept in the patients possession during their hospitalization. LEIF CORBETT verbalizes understanding of Interdisciplinary Patient Education. Patient and/or family were informed about the Rapid Response Team and its purpose.
[2020-04-04 04:00] VITALS: BP 103/59
[2020-04-04 05:28] LABS: BASOPHILS % (AUTO) 1 % (0-10); EOSINOPHILS # (AUTO) 0.1 10^3/uL (0.0-0.3); EOSINOPHILS % (AUTO) 2 % (0-10); HEMATOCRIT 37 % (35-52); HEMOGLOBIN 13.1 g/dL (11.5-16.0); LYMPHOCYTES # (AUTO) 2.3 10^3/uL (1.0-4.0); LYMPHOCYTES % (AUTO) 35 % (12-44); MEAN CORPUSCULAR HEMOGLOBIN 32 pg (25-34); MEAN CORPUSCULAR HGB CONC 35 g/dL (32-36); MEAN CORPUSCULAR VOLUME 91 fL (80-99); MONOCYTES # (AUTO) 0.5 10^3/uL (0.0-1.0); MONOCYTES % (AUTO) 8 % (0-12); NEUTROPHILS # (AUTO) 3.6 10^3/uL (1.8-7.8); NEUTROPHILS % (AUTO) 55 % (42-75); PLATELET COUNT 131 10^3/uL (130-400); WHITE BLOOD COUNT 6.6 10^3/uL (4.3-11.0)
[2020-04-04 05:46] LABS: ALBUMIN 3.9 GM/DL (3.2-4.5); CHLORIDE 112 MMOL/L (98-107); POTASSIUM 3.7 MMOL/L (3.6-5.0); SODIUM 141 MMOL/L (135-145)
[2020-04-04 05:47] LABS: CALCIUM 9.2 MG/DL (8.5-10.1)
[2020-04-04 05:48] LABS: GLUCOSE 115 MG/DL (70-105); TOTAL PROTEIN 6.9 GM/DL (6.4-8.2)
[2020-04-04 05:50] LABS: BILIRUBIN,TOTAL 0.3 MG/DL (0.1-1.0); CARBON DIOXIDE 18 MMOL/L (21-32)
[2020-04-04 05:52] LABS: ALKALINE PHOSPHATASE 63 U/L (40-136); CREATININE SERUM 0.88 MG/DL (0.60-1.30); GFR ESTIMATED > 60
[2020-04-04 05:53] LABS: BUN/CREATININE RATIO 33
[2020-04-04 05:55] LABS: ALANINE AMINOTRANSFERASE 15 U/L (0-55); MAGNESIUM 2.5 MG/DL (1.6-2.4)
[2020-04-04] MEDS: inSUlin ASPART (NovoLOG) 1 UNIT/0.01 ML (CHARGE PER UNIT) SC SCH ×3 (06:56→12:54)
--- NOTE | 2020-04-04 07:18 | History & Physical-Hospitalist ---
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 Patient is her own person and declines NH placement. Sister has been notified and will try to help her more and limit water intake. Source: patient Exam Limitations: no limitations Date Seen 04/04/20 Time Seen by a Provider: 12:00 Attending Physician Jojo Gordillo DO PCP Johnna Britton DO Referring Physician Date of Admission Apr 03, 2020 at 19:09 Home Medications & Allergies Home Medications Reviewed patient Home Medication Reconciliation performed by pharmacy medication reconciliations surgery technician and/or nursing. Patients Allergies have been reviewed. Allergies Allergies Coded Allergies codeine (Verified Allergy, Mild, 11/01/12) Penicillins (Verified Allergy, Unknown, 11/01/12) sulindac (Verified Allergy, Unknown, 11/01/12) amitriptyline (Verified Adverse Reaction, Intermediate, 11/01/12) Past Enmorrj-Fcrcoz-Kwoyxn Hx Past Med/Social Hx: Reviewed Nursing Past Med/Soc Hx, Reviewed and Corrections made Patient Social History Marrital Status: single Alcohol Use: Denies Use Recreational Drug Use: No Smoking Status: Current Everyday Smoker Type Used: Cigarettes Recent Foreign Travel: No Contact w/other who traveled: No Recent Hopitalizations: No Recent Infectious Disease Expo: No Immunizations Up To Date Tetanus Booster (TDap): Unknown Date of Pneumonia Vaccine: Mar 10, 2015 Date of Influenza Vaccine: Mar 13, 2020 Past Medical History Cardiac: High Cholesterol, Hypertension Reproductive: No Sexually Transmitted Disease: No HIV/AIDS: No Female Reproductive Disorders: Denies Gastrointestinal: Abdominal Hernia, Chronic Constipation Musculoskeletal: Chronic Back Pain Endocrine: Diabetes, Non-Insulin dep Loss of Vision: Denies Hearing Impairment: Denies Psychosocial: Anxiety, Bipolar History of Blood Disorders: No Adverse Reaction to Blood Ponce: No Family History Reviewed Nursing Family Hx Alzheimer's disease 19 FATHER Diabetes mellitus G8 SISTER Myocardial infarction 19 MOTHER G8 BROTHER History per records review as patient has altered mental status Review of Systems Constitutional: see HPI, malaise, weakness Physical Exam Physical Exam Vital Signs Vital Signs - First Documented 04/03/20 04/03/20 17:21 21:33 Temp 34.5 Pulse 80 Resp 22 B/P (MAP) 174/92 (119) Pulse Ox 97 O2 Delivery Room Air FiO2 21 Capillary Refill : Less Than 3 Seconds Height, Weight, BMI Height: 5'6" Weight: 160lbs. 3.0oz. 72.619537gt; 24.31 BMI Method:Stated General Appearance: No Apparent Distress, Chronically ill Eyes: Right Eye Normal Inspection, Right Eye PERRL HEENT: PERRL/EOMI, Normal ENT Inspection, Pharynx Normal, Moist Mucous Membranes Neck: Full Range of Motion, Normal Inspection, Non Tender Respiratory: Chest Non Tender, Lungs Clear, Normal Breath Sounds, No Accessory Muscle Use, No Respiratory Distress Cardiovascular: Regular Rate, Rhythm, No Edema, No Gallop, No JVD, No Murmur, Normal Peripheral Pulses Gastrointestinal: Normal Bowel Sounds, No Organomegaly, No Pulsatile Mass, Non Tender, Soft Back: Normal Inspection, No CVA Tenderness, No Vertebral Tenderness Extremity: Normal Capillary Refill, Normal Inspection, Normal Range of Motion, Non Tender, No Calf Tenderness, No Pedal Edema Neurologic/Psychiatric: Alert, Oriented x3, No Motor/Sensory Deficits, Normal Mood/Affect Skin: Normal Color, Warm/Dry Lymphatic: No Adenopathy Results Results/Procedures Labs Laboratory Tests 04/03/20 18:08 04/04/20 04:29 Patient resulted labs reviewed. Assessment/Plan Admission Diagnosis Assessment: Hyponatremia Psychogenic polydipsia Mental illness HTN DM Plan: Limit water intake DC home Sister will monitor her closely Admission Status: Observation Diagnosis/Problems Diagnosis/Problems (1) Altered mental status Status: Acute Qualifiers: Altered mental status type: unspecified Qualified Codes: R41.82 - Altered mental status, unspecified (2) Labile hypertension Status: Acute (3) Hyponatremia Status: Acute Clinical Quality Measures DVT/VTE Risk/Contraindication: Risk Factor Score Per Nursin RFS Level Per Nursing on Admit: 4+=Very High JOJO GORDILLO DO Apr 04, 2020 07:18
[2020-04-04] MEDS: SENNA W/DOCUSATE (SENOKOT S) TABLET PO SCH (08:26)
[2020-04-04] MEDS: amLODIPine 5 MG (NORVASC) TAB PO SCH (08:26)
[2020-04-04] MEDS: NS IV 1000 ML 1,000 ML IV SCH (08:34)
[2020-04-04] MEDS: LORazepam INJ 2 MG/ML (ATIVAN) VIAL IVP PRN (08:34)
[2020-04-04 08:45] VITALS: BP 102/57
[2020-04-04 11:00] VITALS: BP 104/57
[2020-04-04] MEDS ORDERED: AMLO-250 PO (13:27)
--- NOTE | 2020-04-04 13:30 | Discharge Summary ---
Diagnosis/Chief Complaint Date of Admission Apr 03, 2020 at 19:09 Date of Discharge Discharge Date: Apr 04, 2020 Discharge Diagnosis Hyponatremia Psychogenic polydipsia DM OOC HTNOOC Discharge Summary Discharge Physical Examination Allergies: Coded Allergies: codeine (Verified Allergy, Mild, 11/01/12) Penicillins (Verified Allergy, Unknown, 11/01/12) sulindac (Verified Allergy, Unknown, 11/01/12) amitriptyline (Verified Adverse Reaction, Intermediate, 11/01/12) Vitals & I&Os Vital Signs Date Time Temp Pulse Resp B/P (MAP) Pulse Ox O2 Delivery O2 Flow Rate FiO2 04/04/20 15:00 04/04/20 12:55 84 04/04/20 11:00 36.6 16 93 Room Air 04/03/20 21:33 21 General Appearance: Alert, Oriented X3, Cooperative Respiratory: Clear to Auscultation Cardiovascular: Regular Rate Abdominal: Normal Bowel Sounds Neuro: Normal Gait Hospital Course Was the Problem List Reviewed?: Yes See HPI and DC note Labs (last 24 hrs) Laboratory Tests 04/03/20 17:50: Urine Color OTHERH, Urine Clarity CLEAR, Urine pH 6.5, Urine Specific [place] <=1.005, Urine Protein NEGATIVE, Urine Glucose (UA) 3+H, Urine Ketones NEGATIVE, Urine Nitrite NEGATIVE, Urine Bilirubin NEGATIVE, Urine Urobilinogen 0.2, Urine Leukocyte Esterase NEGATIVE, Urine RBC (Auto) NEGATIVE, Urine RBC NONE, Urine WBC NONE, Urine Squamous Epithelial Cells 0-2, Urine Crystals NONE, Urine Bacteria NEGATIVE, Urine Casts NONE, Urine Mucus NEGATIVE, Urine Culture Indicated NO 04/03/20 18:08: White Blood Count 6.9, Red Blood Count 4.24, Hemoglobin 13.6, Hematocrit 38, Mean Corpuscular Volume 90, Mean Corpuscular Hemoglobin 32, Mean Corpuscular Hemoglobin Concent 36, Red Cell Distribution Width 12.0, Platelet Count 85L, Mean Platelet Volume 9.1, Immature Granulocyte % (Auto) 1, Neutrophils (%) (Auto) 66, Lymphocytes (%) (Auto) 25, Monocytes (%) (Auto) 7, Eosinophils (%) (Auto) 1, Basophils (%) (Auto) 1, Neutrophils # (Auto) 4.6, Lymphocytes # (Auto) 1.7, Monocytes # (Auto) 0.5, Eosinophils # (Auto) 0.1, Basophils # (Auto) 0.0, Immature Granulocyte # (Auto) 0.0, Prothrombin Time 14.2, INR Comment 1.1, Activated Partial Thromboplast Time 27, D-Dimer 0.58H, Sodium Level 125*L, Potassium Level 3.9, Chloride Level 97L, Carbon Dioxide Level 17L, Anion Gap 11, Blood Urea Nitrogen 33H, Creatinine 0.83, Estimat Glomerular Filtration Rate > 60, BUN/Creatinine Ratio 40, Glucose Level 98, Lactic Acid Level 1.30, Calcium Level 9.1, Corrected Calcium 8.9, Total Bilirubin 0.6, Aspartate Amino Transf (AST/SGOT) 54H, Alanine Aminotransferase (ALT/SGPT) 16, Alkaline Phosphatase 68, Troponin I < 0.028, C-Reactive Protein High Sensitivity 1.67H, Total Protein 7.5, Albumin 4.3, TSH Winston Testing 1.66 04/04/20 04:29: White Blood Count 6.6, Red Blood Count 4.09, Hemoglobin 13.1, Hematocrit 37, Mean Corpuscular Volume 91, Mean Corpuscular Hemoglobin 32, Mean Corpuscular Hemoglobin Concent 35, Red Cell Distribution Width 12.2, Platelet Count 131, Mean Platelet Volume 9.0, Immature Granulocyte % (Auto) 0, Neutrophils (%) (Auto) 55, Lymphocytes (%) (Auto) 35, Monocytes (%) (Auto) 8, Eosinophils (%) (Auto) 2, Basophils (%) (Auto) 1, Neutrophils # (Auto) 3.6, Lymphocytes # (Auto) 2.3, Monocytes # (Auto) 0.5, Eosinophils # (Auto) 0.1, Basophils # (Auto) 0.0, Immature Granulocyte # (Auto) 0.0, Sodium Level 141, Potassium Level 3.7, Chloride Level 112#H, Carbon Dioxide Level 18L, Anion Gap 11, Blood Urea Nitrogen 29H, Creatinine 0.88, Estimat Glomerular Filtration Rate > 60, BUN/Creatinine Ratio 33, Glucose Level 115H, Calcium Level 9.2, Corrected Calcium 9.3, Total Bilirubin 0.3, Aspartate Amino Transf (AST/SGOT) 51H, Alanine Aminotransferase (ALT/SGPT) 15, Alkaline Phosphatase 63, Total Protein 6.9, Albumin 3.9, Magnesium Level 2.5H 04/04/20 09:35: Glucometer 159H Microbiology 04/03/20 Blood Culture - Preliminary, Resulted No growth 04/03/20 Urine Culture - Final, Complete NO GROWTH Pending Labs Microbiology Date/Time Source Procedure Growth Status 04/03/20 18:08 Peripheral Rt Ac Blood Culture - Preliminary No growth Resulted 04/03/20 18:00 Peripheral Rt Hand Blood Culture - Preliminary No growth Resulted 04/03/20 17:50 Urine U Cath,Nos Urine Culture - Final NO GROWTH Complete Laboratory Tests 04/03/20 17:50: Urine Color OTHER, Urine Clarity CLEAR, Urine pH 6.5, Urine Specific [place] <=1.005, Urine Protein NEGATIVE, Urine Glucose (UA) 3+, Urine Ketones NEGATIVE, Urine Nitrite NEGATIVE, Urine Bilirubin NEGATIVE, Urine Urobilinogen 0.2, Urine Leukocyte Esterase NEGATIVE, Urine RBC (Auto) NEGATIVE, Urine RBC NONE, Urine WBC NONE, Urine Squamous Epithelial Cells 0-2, Urine Crystals NONE, Urine Bacteria NEGATIVE, Urine Casts NONE, Urine Mucus NEGATIVE, Urine Culture Indicated NO 04/03/20 18:08: White Blood Count 6.9, Red Blood Count 4.24, Hemoglobin 13.6, Hematocrit 38, Mean Corpuscular Volume 90, Mean Corpuscular Hemoglobin 32, Mean Corpuscular Hemoglobin Concent 36, Red Cell Distribution Width 12.0, Platelet Count 85, Mean Platelet Volume 9.1, Immature Granulocyte % (Auto) 1, Neutrophils (%) (Auto) 66, Lymphocytes (%) (Auto) 25, Monocytes (%) (Auto) 7, Eosinophils (%) (Auto) 1, Basophils (%) (Auto) 1, Neutrophils # (Auto) 4.6, Lymphocytes # (Auto) 1.7, Monocytes # (Auto) 0.5, Eosinophils # (Auto) 0.1, Basophils # (Auto) 0.0, Immature Granulocyte # (Auto) 0.0, Prothrombin Time 14.2, INR Comment 1.1, Activated Partial Thromboplast Time 27, D-Dimer 0.58, Sodium Level 125, Po tassium Level 3.9, Chloride Level 97, Carbon Dioxide Level 17, Anion Gap 11, Blood Urea Nitrogen 33, Creatinine 0.83, Estimat Glomerular Filtration Rate > 60, BUN/Creatinine Ratio 40, Glucose Level 98, Lactic Acid Level 1.30, Calcium Level 9.1, Corrected Calcium 8.9, Total Bilirubin 0.6, Aspartate Amino Transf (AST/SGOT) 54, Alanine Aminotransferase (ALT/SGPT) 16, Alkaline Phosphatase 68, Troponin I < 0.028, C-Reactive Protein High Sensitivity 1.67, Total Protein 7.5, Albumin 4.3, TSH Winston Testing 1.66 04/04/20 04:29: White Blood Count 6.6, Red Blood Count 4.09, Hemoglobin 13.1, Hematocrit 37, Mean Corpuscular Volume 91, Mean Corpuscular Hemoglobin 32, Mean Corpuscular Hemoglobin Concent 35, Red Cell Distribution Width 12.2, Platelet Count 131, Mean Platelet Volume 9.0, Immature Granulocyte % (Auto) 0, Neutrophils (%) (Auto) 55, Lymphocytes (%) (Auto) 35, Monocytes (%) (Auto) 8, Eosinophils (%) (Auto) 2, Basophils (%) (Auto) 1, Neutrophils # (Auto) 3.6, Lymphocytes # (Auto) 2.3, Monocytes # (Auto) 0.5, Eosinophils # (Auto) 0.1, Basophils # (Auto) 0.0, Immature Granulocyte # (Auto) 0.0, Sodium Level 141, Potassium Level 3.7, Chloride Level 112, Carbon Dioxide Level 18, Anion Gap 11, Blood Urea Nitrogen 29, Creatinine 0.88, Estimat Glomerular Filtration Rate > 60, BUN/Creatinine Ratio 33, Glucose Level 115, Calcium Level 9.2, Corrected Calcium 9.3, Total Bilirubin 0.3, Aspartate Amino Transf (AST/SGOT) 51, Alanine Aminotransferase (ALT/SGPT) 15, Alkaline Phosphatase 63, Total Protein 6.9, Albumin 3.9, Magnesium Level 2.5 04/04/20 09:35: Glucometer 159 Discharge Home Medications: Active Scripts Active Glyburide 1.25 Mg Tablet 1.25 Mg PO DAILY Amlodipine Besylate 5 Mg Tablet 5 Mg PO BID Clonazepam 0.5 Mg Tablet 0.5 Mg PO Q8H PRN Aspirin 81 Mg Tab.chew 81 Mg PO DAILY@0900 Reported Docusate Sodium 100 Mg Capsule 100 Mg PO DAILY PRN Paliperidone ER (Paliperidone) 9 Mg Tab.er.24 9 Mg PO DAILY Cetirizine HCl 10 Mg Tablet 10 Mg PO DAILY Haloperidol 10 Mg Tablet 10 Mg PO HS Haloperidol 10 Mg Tablet 5 Mg PO DAILY TAKES OF A 10MG Invokana (Canagliflozin) 300 Mg Tablet 300 Mg PO DAILY Fenofibric Acid (Fenofibric Acid (Choline)) 135 Mg Capsule.dr 135 Mg PO DAILY Januvia (Sitagliptin Phosphate) 100 Mg Tablet 100 Mg PO DAILY Omeprazole 40 Mg Capsule.dr 40 Mg PO DAILY Instructions to patient/family Please see electronic discharge instructions given to patient. Clinical Quality Measures DVT/VTE Risk/Contraindication: Risk Factor Score Per Nursin RFS Level Per Nursing on Admit: 4+=Very High LAUREN CHURCH DO Apr 04, 2020 13:30
[2020-04-04] MEDS ORDERED: GLYB1.253 PO (13:36)
== END 2020-04-04 15:00 | disposition home or self-care (01) ==
LOC: EDUNIT# 17:19 → ER 17:20 → 4TH 19:09
PROVIDERS: ADMIT Internal Medicine; ATTEND Internal Medicine
DX: E87.1 Hypo-osmolality and hyponatremia (principal); R63.1 Polydipsia; E11.9 Type 2 diabetes mellitus without complications; I10 Essential (primary) hypertension; E78.00 Pure hypercholesterolemia, unspecified; K59.09 Other constipation; G89.29 Other chronic pain; M54.5 Low back pain; F41.9 Anxiety disorder, unspecified; F31.9 Bipolar disorder, unspecified; R41.82 Altered mental status, unspecified; F17.210 Nicotine dependence, cigarettes, uncomplicated; Z79.82 Long term (current) use of aspirin; Z79.899 Other long term (current) drug therapy; Z88.0 Allergy status to penicillin; Z88.5 Allergy status to narcotic agent; Z88.8 Allergy status to other drugs, medicaments and biological substances
CPT/HCPCS: 51702; 70450; 71045; 80053 ×2; 81000; 82962; 83605; 83735; 84443; 84484; 85025 ×2; 85379; 85610; 85730; 86141; 87040; 87088; 93005; 93041; 99284; G0378; 36415

== ENCOUNTER 2020-04-11 19:54 | Emergency (ER) | payer MEDICAID ==
[~2020-04-11] VITALS: Ht 167 cm; Wt 77.1 kg
[~2020-04-11 19:54] MED LIST changes: +AMLO-250 PO; +GLYB1.253 PO
--- NOTE | 2020-04-11 20:06 | ED General ---
General Chief Complaint: Altered Mental Status Stated Complaint: ALTERED MENTAL STATE Source of Information: EMS Exam Limitations: No Limitations History of Present Illness Date Seen by Provider: Apr 11, 2020 Time Seen by Provider: 20:03 Initial Comments To ER by EMS with reports of altered mental status. Patient was found in her apartment by a neighbor and called the manager [employer] who actually made contact with her and found her to be slumped over and incoherent and she summoned EMS. This was noticed at about 6:30 PM. She was last spoken to at 1:30 PM. Timing/Duration: 1-2 Days Severity: Moderate Associated Systoms: Denies Symptoms Allergies and Home Medications Allergies Coded Allergies: codeine (Verified Allergy, Mild, 11/01/12) Penicillins (Verified Allergy, Unknown, 11/01/12) sulindac (Verified Allergy, Unknown, 11/01/12) amitriptyline (Verified Adverse Reaction, Intermediate, 11/01/12) Home Medications Amlodipine Besylate 5 Mg Tablet, 5 MG PO BID Prescribed by: LAUREN CHURCH on 04/04/20 1327 Aspirin 81 Mg Tab.chew, 81 MG PO DAILY@0900 Prescribed by: LAUREN CHURCH on 03/24/20 1012 Canagliflozin 300 Mg Tablet, 300 MG PO DAILY, (Reported) Cetirizine HCl 10 Mg Tablet, 10 MG PO DAILY, (Reported) Clonazepam 0.5 Mg Tablet, 0.5 MG PO Q8H PRN for ANXIETY Prescribed by: LAUREN CHURCH on 03/24/20 1012 Docusate Sodium 100 Mg Capsule, 100 MG PO DAILY PRN for CONSTIPATION-1ST LINE, (Reported) Fenofibric Acid (Choline) 135 Mg Capsule.dr, 135 MG PO DAILY, (Reported) Glyburide 1.25 Mg Tablet, 1.25 MG PO DAILY Prescribed by: LAUREN CHURCH on 04/04/20 1336 Haloperidol 10 Mg Tablet, 5 MG PO DAILY, (Reported) TAKES OF A 10MG Haloperidol 10 Mg Tablet, 10 MG PO HS, (Reported) Omeprazole 40 Mg Capsule.dr, 40 MG PO DAILY, (Reported) Paliperidone 9 Mg Tab.er.24, 9 MG PO DAILY, (Reported) Sitagliptin Phosphate 100 Mg Tablet, 100 MG PO DAILY, (Reported) Patient Home Medication List Home Medication List Reviewed: Yes Review of Systems Review of Systems Constitutional: see HPI EENTM: see HPI Respiratory: no symptoms reported Cardiovascular: no symptoms reported Genitourinary: no symptoms reported Musculoskeletal: no symptoms reported Skin: no symptoms reported Psychiatric/Neurological: No Symptoms Reported Hematologic/Lymphatic: No Symptoms Reported Past Ovjdtcr-Kxubkg-Wgclca Hx Patient Social History Alcohol Use: Denies Use Recreational Drug Use: No Type Used: Cigarettes Recent Hopitalizations: No Physical Abuse: No Sexual Abuse: No Mistreated: No Fear: No Immunizations Up To Date Tetanus Booster (TDap): Unknown Date of Pneumonia Vaccine: Mar 10, 2015 Date of Influenza Vaccine: Mar 13, 2020 Past Medical History Surgeries: No Respiratory: Yes Chronic Bronchitis, COPD Cardiac: Yes High Cholesterol, Hypertension Neurological: No Reproductive Disorders: No Female Reproductive Disorders: Denies Sexually Transmitted Disease: No HIV/AIDS: No Gastrointestinal: Yes Abdominal Hernia, Chronic Constipation Musculoskeletal: Yes Chronic Back Pain Endocrine: Yes Diabetes, Non-Insulin dep Loss of Vision: Denies Hearing Impairment: Denies Cancer: No Psychosocial: Yes Anxiety, Bipolar, Schizophrenia Integumentary: No Blood Disorders: No Adverse Reaction/Blood Tranf: No Family Medical History Alzheimer's disease 19 FATHER Diabetes mellitus G8 SISTER Myocardial infarction 19 MOTHER G8 BROTHER History per records review as patient has altered mental status Physical Exam Vital Signs Vital Signs - First Documented 04/11/20 19:57 Temp 35.4 Pulse 93 Resp 20 B/P (MAP) 175/84 (114) Pulse Ox 98 Capillary Refill : Height, Weight, BMI Height: 5'6" Weight: 160lbs. 3.0oz. [id number]; 24.31 BMI Method:Stated General Appearance: No Apparent Distress, WD/WN, Other (Lethargic, eyes are open she looks around the room, when instructed multiple times she is able to move each extremity. However it takes multiple times of reinforcing direction to get her to follow a command. She is nonverbal.) Eyes: Bilateral Eye Normal Inspection, Bilateral Eye PERRL, Bilateral Eye EOMI Neck: Full Range of Motion, Normal Inspection Respiratory: No Accessory Muscle Use, No Respiratory Distress Cardiovascular: Regular Rate, Rhythm, Normal Peripheral Pulses Gastrointestinal: Normal Bowel Sounds, Non Tender, Soft Extremity: Normal Capillary Refill, Normal Inspection Neurologic/Psychiatric: Depressed Affect; No Facial Droop Skin: Normal Color, Warm/Dry Progress/Results/Core Measures Suspected Sepsis SIRS Temperature: Pulse: Respiratory Rate: Laboratory Tests 04/11/20 19:50: White Blood Count 6.9 Blood Pressure / Mean: Laboratory Tests 04/11/20 19:50: Creatinine 0.75, INR Comment 1.0, Platelet Count 75L, Total Bilirubin 0.5 Results/Orders Lab Results Laboratory Tests Test 04/11/20 19:50 04/11/20 20:00 04/11/20 20:20 Range/Units White Blood Count 6.9 4.3-11.0 10^3/uL Red Blood Count 4.29 3.80-5.11 10^6/uL Hemoglobin 13.8 11.5-16.0 g/dL Hematocrit 38 35-52 % Mean Corpuscular Volume 88 80-99 fL Mean Corpuscular Hemoglobin 32 25-34 pg Mean Corpuscular Hemoglobin Concent 36 32-36 g/dL Red Cell Distribution Width 11.9 10.0-14.5 % Platelet Count 75 L 130-400 10^3/uL Mean Platelet Volume 8.5 L 9.0-12.2 fL Immature Granulocyte % (Auto) 1 % Neutrophils (%) (Auto) 76 H 42-75 % Lymphocytes (%) (Auto) 16 12-44 % Monocytes (%) (Auto) 5 0-12 % Eosinophils (%) (Auto) 1 0-10 % Basophils (%) (Auto) 0 0-10 % Neutrophils # (Auto) 5.3 1.8-7.8 10^3/uL Lymphocytes # (Auto) 1.1 1.0-4.0 10^3/uL Monocytes # (Auto) 0.4 0.0-1.0 10^3/uL Eosinophils # (Auto) 0.0 0.0-0.3 10^3/uL Basophils # (Auto) 0.0 0.0-0.1 10^3/uL Immature Granulocyte # (Auto) 0.1 0.0-0.1 10^3/uL Prothrombin Time 13.4 12.2-14.7 SEC INR Comment 1.0 0.8-1.4 Sodium Level 121 *L 135-145 MMOL/L Potassium Level 3.9 3.6-5.0 MMOL/L Chloride Level 93 L 98-107 MMOL/L Carbon Dioxide Level 18 L 21-32 MMOL/L Anion Gap 10 5-14 MMOL/L Blood Urea Nitrogen 29 H 7-18 MG/DL Creatinine 0.75 0.60-1.30 MG/DL Estimat Glomerular Filtration Rate > 60 BUN/Creatinine Ratio 39 Glucose Level 137 H 70-105 MG/DL Calcium Level 8.9 8.5-10.1 MG/DL Corrected Calcium 8.5 8.5-10.1 MG/DL Total Bilirubin 0.5 0.1-1.0 MG/DL Aspartate Amino Transf (AST/SGOT) 23 5-34 U/L Alanine Aminotransferase (ALT/SGPT) 13 0-55 U/L Alkaline Phosphatase 68 40-136 U/L Total Protein 8.1 6.4-8.2 GM/DL Albumin 4.5 3.2-4.5 GM/DL Urine Color YELLOW Urine Clarity CLEAR Urine pH 6.5 5-9 Urine Specific [place] <=1.005 1.016-1.022 Urine Protein NEGATIVE NEGATIVE Urine Glucose (UA) 2+ H NEGATIVE Urine Ketones NEGATIVE NEGATIVE Urine Nitrite NEGATIVE NEGATIVE Urine Bilirubin NEGATIVE NEGATIVE Urine Urobilinogen 0.2 < = 1.0 MG/DL Urine Leukocyte Esterase NEGATIVE NEGATIVE Urine RBC (Auto) TRACE-I NEGATIVE Urine RBC RARE /HPF Urine WBC RARE /HPF Urine Squamous Epithelial Cells 0-2 /HPF Urine Crystals NONE /LPF Urine Bacteria NEGATIVE /HPF Urine Casts NONE /LPF Urine Mucus NEGATIVE /LPF Urine Culture Indicated NO Blood Gas Puncture Site RIGHT WRIST Blood Gas Patient Temperature 35.4 Arterial Blood pH 7.44 H 7.37-7.43 Arterial Blood Partial Pressure CO2 28 L 35-45 MMHG Arterial Blood Partial Pressure O2 100 H 79-93 MMHG Arterial Blood HCO3 19 L 23-27 MMOL/L Arterial Blood Total CO2 20.1 L 21.0-31.0 MMOL/L Arterial Blood Oxygen Saturation 99 94-100 % Arterial Blood Base Excess -4.6 L -2.5-2.5 MMOL/L Eric Test POSITIVE Blood Gas Ventilator Setting NO Blood Gas Inspired Oxygen RA My Orders Orders - NORAH COLON APRN Cbc With Automated Diff (04/11/20 19:59) Comprehensive Metabolic Panel (04/11/20 19:59) Protime With Inr (04/11/20 19:59) Ct Head Wo (04/11/20 19:59) Chest 1 View, Ap/Pa Only (04/11/20 19:59) Ua Culture If Indicated (04/11/20 20:13) Arterial Blood Gas (04/11/20 20:23) Sodium Chloride 3% (Hypertonic Sodium Ch (04/11/20 20:45) Ns Iv 1000 Ml (Sodium Chloride 0.9%) (04/11/20 21:00) Vital Signs/I&O 04/11/20 19:57 Temp 35.4 Pulse 93 Resp 20 B/P (MAP) 175/84 (114) Pulse Ox 98 Capillary Refill : Departure Communication (Admissions) Due to she has a 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 We do not have any bed availability here, I spoke with Dr. Church she will accept the patient to [facility]. We will do normal saline at 80 cc an hour and fluid restrict her. Impression Primary Impression: Altered mental status Additional Impression: Hyponatremia Disposition: XFER SHT-TRM HOSP Condition: Stable Transfer Transfer Reason: Diversion Time Spoke to Accepting Phy: 21:01 Departure-Patient Inst. Referrals: ADAM BEGUM DO (PCP/Family) Primary Care Physician NORAH COLON APRN Apr 11, 2020 20:06
[2020-04-11 20:08] LABS: BASOPHILS % (AUTO) 0 % (0-10); EOSINOPHILS % (AUTO) 1 % (0-10); HEMATOCRIT 38 % (35-52); HEMOGLOBIN 13.8 g/dL (11.5-16.0); LYMPHOCYTES # (AUTO) 1.1 10^3/uL (1.0-4.0); LYMPHOCYTES % (AUTO) 16 % (12-44); MEAN CORPUSCULAR HEMOGLOBIN 32 pg (25-34); MEAN CORPUSCULAR HGB CONC 36 g/dL (32-36); MEAN CORPUSCULAR VOLUME 88 fL (80-99); MEAN PLATELET VOLUME 8.5 fL (9.0-12.2); MONOCYTES # (AUTO) 0.4 10^3/uL (0.0-1.0); MONOCYTES % (AUTO) 5 % (0-12); NEUTROPHILS # (AUTO) 5.3 10^3/uL (1.8-7.8); NEUTROPHILS % (AUTO) 76 % (42-75); PLATELET COUNT 75 10^3/uL (130-400); WHITE BLOOD COUNT 6.9 10^3/uL (4.3-11.0)
[2020-04-11 20:14] LABS: PROTHROMBIN TIME PATIENT 13.4 SEC (12.2-14.7)
[2020-04-11 20:22] LABS: ALANINE AMINOTRANSFERASE 13 U/L (0-55); ALBUMIN 4.5 GM/DL (3.2-4.5); ALKALINE PHOSPHATASE 68 U/L (40-136); BILIRUBIN,TOTAL 0.5 MG/DL (0.1-1.0); BUN/CREATININE RATIO 39; CALCIUM 8.9 MG/DL (8.5-10.1); CARBON DIOXIDE 18 MMOL/L (21-32); CHLORIDE 93 MMOL/L (98-107); CREATININE SERUM 0.75 MG/DL (0.60-1.30); GFR ESTIMATED > 60; GLUCOSE 137 MG/DL (70-105); POTASSIUM 3.9 MMOL/L (3.6-5.0); TOTAL PROTEIN 8.1 GM/DL (6.4-8.2)
[2020-04-11 20:26] LABS: BILIRUBIN,URINE NEGATIVE (NEGATIVE); CLARITY,URINE CLEAR; COLOR,URINE YELLOW; GLUCOSE, URINE (UA) 2+ (NEGATIVE); KETONES,URINE NEGATIVE (NEGATIVE); LEUKOCYTE ESTERASE ,URINE NEGATIVE (NEGATIVE); NITRITE,URINE NEGATIVE (NEGATIVE); PH,URINE 6.5 (5-9); PROTEIN,URINE NEGATIVE (NEGATIVE)
[2020-04-11 20:27] LABS: BACTERIA,URINE NEGATIVE /HPF; RBC,URINE RARE /HPF; SQUAMOUS EPITHELIAL CELL,UR 0-2 /HPF; WBC,URINE RARE /HPF
[2020-04-11 20:29] LABS: ABG BASE EXCESS -4.6 MMOL/L (-2.5-2.5); ABG OXYGEN SATURATION 99 % (94-100); ABG PCO2 28 MMHG (35-45); ABG PH 7.44 (7.37-7.43); ABG PO2 100 MMHG (79-93); ABG TCO2 20.1 MMOL/L (21.0-31.0)
[2020-04-11 20:31] LABS: SODIUM 121 MMOL/L (135-145)
[2020-04-11 20:31] LABS: ALLENS TEST POSITIVE
[2020-04-11 20:32] LABS: INSPIRED O2 RA; PATIENT TEMP 35.4; VENTILATOR NO
--- NOTE | 2020-04-11 20:41 | Diagnostic Imaging Report ---
CHEST 1 VIEW, AP/PA ONLY Indication: Altered mental status Comparison: 04/03/2020 Findings: No focal airspace disease in the visualized lungs. Please note that the posterior lower lobes are poorly evaluated by portable radiography. No pleural effusion or pneumothorax. Normal cardiomediastinal silhouette. Impression: 1. No acute cardiopulmonary process by portable radiography. Dictated by: Dictated on workstation # [id number]
--- NOTE | 2020-04-11 20:44 | Diagnostic Imaging Report ---
PROCEDURE: CT head without contrast. TECHNIQUE: Multiple contiguous axial images were obtained through the brain without the use of intravenous contrast. Auto Exposure Controls were utilized during the CT exam to meet ALARA standards for radiation dose reduction. INDICATION: Altered mental status. COMPARISON: CT head of 04/03/2020. FINDINGS: No intracranial hyperdense hemorrhage or space-occupying mass. No hydrocephalus or midline shift. Hypoattenuation in the left frontal white matter is unchanged and likely due to chronic microvascular ischemic disease. Hyperostosis Frontalis Interna is again noted. Paranasal sinuses are clear. Mastoid air cells are normal. Orbits are unremarkable. IMPRESSION: No acute intracranial process by CT. Dictated by: Dictated on workstation # [id number]
[2020-04-11] MEDS ORDERED: SODIUM CHLORIDE 3% 500 ML IV SCH (20:45)
[2020-04-11] MEDS ORDERED: NS IV 1000 ML 1,000 ML IV SCH (21:00)
--- NOTE | 2020-04-11 21:00 | NUR ---
pt resting with eyes closed. Chest rise equal and unlabored. No apparent distress noted. Pt VS as follows: HR 90, Spo2 95% on RA, BP 130/72.
[2020-04-11 22:59] VITALS: BP 130/86
== END 2020-04-11 22:59 | disposition short-term general hospital (02) ==
LOC: EDUNIT# 19:54 → ER 19:55
DX: R41.82 Altered mental status, unspecified (principal); E87.1 Hypo-osmolality and hyponatremia; I10 Essential (primary) hypertension; F20.9 Schizophrenia, unspecified; F31.9 Bipolar disorder, unspecified; E11.9 Type 2 diabetes mellitus without complications; E78.00 Pure hypercholesterolemia, unspecified; Z88.0 Allergy status to penicillin; Z88.5 Allergy status to narcotic agent; Z88.8 Allergy status to other drugs, medicaments and biological substances; Z83.3 Family history of diabetes mellitus; Z82.49 Family history of ischemic heart disease and other diseases of the circulatory system; Z79.82 Long term (current) use of aspirin
CPT/HCPCS: 36415; 70450; 71045; 80053; 81000; 82805; 85025; 85610

== ENCOUNTER 2020-05-01 23:15 | Emergency (ER) | payer MEDICAID ==
[~2020-05-01] VITALS: Ht 167.7 cm; Wt 67.1 kg
--- NOTE | 2020-05-01 23:56 | ED Back Pain ---
General Chief Complaint: Back Problems Stated Complaint: LOW BACK PAIN Nursing Triage Note: PT TO ROOM 06 VIA EMS WITH C/O LOW BACK PAIN AFTER FALLING OUT OF BED. PER EMS, PT TOOK HER OTC SLEEPING PILL AND FELL ASLEEP THEN FELL OUT OF BED. PER EMS, [facility] CALLED FOR LIFT ASSIST AND PT MET [facility] AT THE DOOR THEN PT REQUESTED EMS TO BRING HER TO HOSPITAL. Nursing Sepsis Screen: No Definite Risk Source of Information: Patient, EMS History of Present Illness Date Seen by Provider: May 01, 2020 Time Seen by Provider: 23:14 Initial Comments PT ARRIVES VIA EMS FROM HOME--LIVES ALONE PT WAS ASLEEP AND ROLLED OUT OF BED PT IS WEARING SWEATSHIRT AND JEANS PT HAD CALLED [facility] DEPT FOR LIFT ASSIST, BUT PT HAD GOTTEN UP AND WALKED ON HER OWN AND MET [facility] DEPT STAFF AT THE DOOR, THEN TOLD THEM SHE WANTED TO COME HERE. AMBULATING ON HER OWN WHEN EMS ARRIVED. PT C/O LOW BACK PAIN NO RADIATION OF PAIN NO PARESTHESIAS OR MOTOR DEFICITS NO LOSS OF BOWEL OR BLADDER CONTROL DOES NOT THINK SHE HIT HER HEAD, HAS NO PAIN IN HEAD NO NECK PAIN NO DIZZINESS NO VISION CHANGES NO NAUSEA/VOMITING PT IS VERY SLEEPY--TOOK HER NORMAL DOSE OF 2 OTC SLEEPING PILLS TONIGHT. PT HAS HISTORY OF CHRONIC BACK PAIN PT IS DIABETIC AND ACCUCHECK 119 BY EMS. Other Comments PCP: DEANA-JUANI Allergies and Home Medications Allergies Coded Allergies: codeine (Verified Allergy, Mild, 11/01/12) Penicillins (Verified Allergy, Unknown, 11/01/12) sulindac (Verified Allergy, Unknown, 11/01/12) amitriptyline (Verified Adverse Reaction, Intermediate, 11/01/12) Home Medications Amlodipine Besylate 5 Mg Tablet, 5 MG PO BID Prescribed by: LAUREN CHURCH on 04/04/20 1327 Aspirin 81 Mg Tab.chew, 81 MG PO DAILY@0900 Prescribed by: LAUREN CHURCH on 03/24/20 1012 Canagliflozin 300 Mg Tablet, 300 MG PO DAILY, (Reported) Cetirizine HCl 10 Mg Tablet, 10 MG PO DAILY, (Reported) Clonazepam 0.5 Mg Tablet, 0.5 MG PO Q8H PRN for ANXIETY Prescribed by: LAUREN CHURCH on 03/24/20 1012 Docusate Sodium 100 Mg Capsule, 100 MG PO DAILY PRN for CONSTIPATION-1ST LINE, (Reported) Fenofibric Acid (Choline) 135 Mg Capsule.dr, 135 MG PO DAILY, (Reported) Glyburide 1.25 Mg Tablet, 1.25 MG PO DAILY Prescribed by: LAUREN CHURCH on 04/04/20 1336 Haloperidol 10 Mg Tablet, 5 MG PO DAILY, (Reported) TAKES OF A 10MG Haloperidol 10 Mg Tablet, 10 MG PO HS, (Reported) Omeprazole 40 Mg Capsule.dr, 40 MG PO DAILY, (Reported) Paliperidone 9 Mg Tab.er.24, 9 MG PO DAILY, (Reported) Sitagliptin Phosphate 100 Mg Tablet, 100 MG PO DAILY, (Reported) Patient Home Medication List Home Medication List Reviewed: Yes Review of Systems Constitutional: see HPI (SLEEPY) EENTM: no symptoms reported Respiratory: no symptoms reported Cardiovascular: no symptoms reported Gastrointestinal: no symptoms reported Genitourinary: no symptoms reported Musculoskeletal: see HPI, back pain Skin: no symptoms reported Psychiatric/Neurological: See HPI; Denies Headache, Denies Numbness, Denies Paresthesia, Denies Seizure, Denies Tingling, Denies Tremors, Denies Weakness Past Omwvmnm-Ochsqa-Frpxmp Hx Past Med/Social Hx: Reviewed and Corrections made Patient Social History Alcohol Use: Past History Drug of Choice: TEEN Smoking Status: Current Everyday Smoker (2 PPD) Type Used: Cigarettes Recent Infectious Disease Expo: No Recent Hopitalizations: No Immunizations Up To Date Tetanus Booster (TDap): Unknown Date of Pneumonia Vaccine: Mar 10, 2015 Date of Influenza Vaccine: Mar 13, 2020 Past Medical History Surgeries: No Respiratory: Yes Chronic Bronchitis, COPD Cardiac: Yes High Cholesterol, Hypertension Neurological: No Reproductive Disorders: No Female Reproductive Disorders: Denies Sexually Transmitted Disease: No HIV/AIDS: No Genitourinary: No Gastrointestinal: Yes Abdominal Hernia, Chronic Constipation Musculoskeletal: Yes Chronic Back Pain Endocrine: Yes (PSYCHOGENIC POLYDIPSIA WITH FREQUENT HYPONATREMIA) Diabetes, Non-Insulin dep Loss of Vision: Denies Hearing Impairment: Denies Cancer: No Psychosocial: Yes Anxiety, Bipolar, Schizophrenia Integumentary: No Blood Disorders: No Adverse Reaction/Blood Tranf: No Family Medical History Alzheimer's disease 19 FATHER Diabetes mellitus G8 SISTER Myocardial infarction 19 MOTHER G8 BROTHER SOCIAL HISTORY: -ETOH--HISTORY OF ABUSE, NO RECENT USE -DRUGS--USED TEEN, NONE SINCE -SMOKES 2 PPD Physical Exam Vital Signs Vital Signs - First Documented 05/01/20 05/02/20 23:17 01:15 Temp 35.6 Pulse 78 Resp 16 B/P (MAP) 145/65 (91) Pulse Ox 96 O2 Delivery Room Air Capillary Refill : Less Than 3 Seconds Height, Weight, BMI Height: 5'6" Weight: 160lbs. 3.0oz. [id number]; 23.00 BMI Method:Stated General Appearance: No Apparent Distress, WD/WN, Other (SLEEPY, BUT AWAKE AND ORIENTED. ) HEENT: PERRL/EOMI, Other (NO EXTERNAL EVIDENCE OF TRAUMA TO HEAD OR FACE) Neck: Full Range of Motion, Normal Inspection, Non Tender, Supple Cardiovascular: Regular Rate, Rhythm, No Murmur, Normal Peripheral Pulses Respiratory: Chest Non Tender, Normal Breath Sounds, No Accessory Muscle Use, No Respiratory Distress Peripheral Pulses: 1+ Dorsalis Pedis (R), 1+ Left Dors-Pedis (L) Gastrointestinal: Non Tender, Soft Back: No CVA Tenderness, Vertebral Tenderness (DIFFUSE TENDERNESS FROM MID THORACIC AREA ALL THE WAY DOWN TO LOWER LUMBAR AREA) Extremity: Normal Capillary Refill, Normal Inspection, Normal Range of Motion, Non Tender, No Calf Tenderness, No Pedal Edema, Pelvis Stable Neurologic/Psychiatric: Alert, Oriented x3, No Motor/Sensory Deficits, rehabilitation counsellor II- XII Norm as Tested Skin: Normal Color, Warm/Dry; No Ecchymosis; Other (NO EXTERNAL EVIDENCE OF TRAUMA ANYWHERE) Progress/Results/Core Measures Results/Orders My Orders Orders - RAE MELENDEZ DO Ct Head/Cervical Spine Wo (05/02/20 00:10) Ct Thoracic/Lumbar Spine Wo (05/02/20 00:10) Pelvis (05/02/20 00:10) Vital Signs/I&O 05/01/20 05/02/20 23:17 01:15 Temp 35.6 Pulse 78 73 Resp 16 16 B/P (MAP) 145/65 (91) 131/64 Pulse Ox 96 O2 Delivery Room Air Room Air Blood Pressure Mean: 91 Progress Progress Note : Progress Note SLEPT THROUGH MOST OF ER STAY PT HAD NO COMPLAINTS FOR ENTIRE ER STAY PT AMBULATED OUT OF ER ON HER OWN WITHOUT DIFFICULTY Diagnostic Imaging Comments PELVIS XRAY--NO ACUTE PROCESS, PENDING RADIOLOGIST REVIEW CT THORACIC/LUMBAR SPINE--NO ACUTE PROCESS, PER [facility] VIA FAX AT 0056 CT HEAD/CERVICAL SPINE--NO ACUTE PROCESS, PER [facility] VIA FAX AT 0110 Reviewed: Reviewed by Me Departure Impression Primary Impression: S/P FALL OUT OF BED Additional Impression: Back strain Disposition: HOME, SELF-CARE Condition: Stable Departure-Patient Inst. Referrals: ADAM BEGUM DO (PCP/Family) Primary Care Physician Patient Instructions: Back Muscle Strain (DC), Getting Up From a Fall, Preventing Falls Add. Discharge Instructions: ALTERNATE ICE AND HEAT TO SORE AREAS AT 2O MINUTE INTERVALS TYLENOL AND MOTRIN NEEDED FOR PAIN FOLLOW UP WITH YOUR DR IN 1 WEEK IF NO BETTER All discharge instructions reviewed with patient and/or family. Voiced understanding. RAE MELENDEZ DO May 01, 2020 23:56
[2020-05-02 01:15] VITALS: BP 131/64
--- NOTE | 2020-05-02 06:42 | Diagnostic Imaging Report ---
PROCEDURE: CT head and CT cervical spine without contrast. TECHNIQUE: Multiple contiguous axial images were obtained through the brain and cervical spine without the use of intravenous contrast. Sagittal and coronal reformations through the cervical spine were then performed. Auto Exposure Controls were utilized during the CT exam to meet ALARA standards for radiation dose reduction. INDICATION: Trauma. Back pain. COMPARISON: CT head without contrast 04/11/2020. CT cervical spine and head without contrast 02/29/2020. FINDINGS: CT HEAD: No intracranial hemorrhage, mass effect, hydrocephalus or extra-axial fluid collections. No CT evidence of a territorial infarction. Osseous structures are intact. Visualized paranasal sinuses and mastoids are clear. CT cervical spine: Normal alignment. Vertebral body heights preserved in the cervical spine. Stable minimal height loss at T1-T3. No evidence of high-grade spinal canal stenosis on soft tissue windows. Moderate atherosclerotic calcifications in the carotid bifurcations. Lung apices are clear. IMPRESSION: 1. No acute intracranial or cervical spine CT findings. 2. Minimal height loss of the T1-T3 vertebral bodies is similar to 02/29/2020. No significant change from preliminary interpretation. Dictated by: Dictated on workstation # [id number]
--- NOTE | 2020-05-02 06:55 | Diagnostic Imaging Report ---
PROCEDURE: CT thoracic and lumbar spine without contrast. TECHNIQUE: Multiple contiguous axial images were obtained through the thoracic and lumbar spine without the use of intravenous contrast. Sagittal and coronal reformations were then performed. All CT scans use one or more of the following dose optimizing techniques: automated exposure control, MA and/or KvP adjustment based on a patient size and exam type, or iterative reconstruction. INDICATION: Trauma. COMPARISON: CT cervical spine without contrast 02/29/2020. FINDINGS: Normal alignment of the thoracic and lumbar spine. Minimal height loss of the T1-T3 vertebral bodies is stable compared to 02/29/2020. Vertebral body heights are otherwise preserved. No acute fractures. Mild degenerative endplate changes throughout the thoracic spine. No high-grade spinal canal stenosis is evident on soft tissue windows. The visualized pelvis is intact. Paravertebral soft tissues are unremarkable. IMPRESSION: No acute CT findings in the thoracic or lumbar spine. Agree with preliminary interpretation. Dictated by: Dictated on workstation # [id number]
--- NOTE | 2020-05-02 07:37 | Diagnostic Imaging Report ---
INDICATION: Pelvic pain. FINDINGS: Examination of the pelvis in the supine projection fails to reveal evidence of fracture, dislocation or other osseous abnormality. IMPRESSION: Negative pelvis. Dictated by: Dictated on workstation # [id number]
== END 2020-05-02 01:15 | disposition home or self-care (01) ==
LOC: EDUNIT# 23:15 → ER 23:16
DX: S29.012A Strain of muscle and tendon of back wall of thorax, initial encounter (principal); S39.012A Strain of muscle, fascia and tendon of lower back, initial encounter; I10 Essential (primary) hypertension; E11.9 Type 2 diabetes mellitus without complications; E78.00 Pure hypercholesterolemia, unspecified; F41.9 Anxiety disorder, unspecified; F31.9 Bipolar disorder, unspecified; F20.9 Schizophrenia, unspecified; F17.210 Nicotine dependence, cigarettes, uncomplicated; Z79.82 Long term (current) use of aspirin; Z79.899 Other long term (current) drug therapy; Z79.84 Long term (current) use of oral hypoglycemic drugs; Z88.0 Allergy status to penicillin; Z88.5 Allergy status to narcotic agent; Z88.6 Allergy status to analgesic agent; Z88.8 Allergy status to other drugs, medicaments and biological substances; W06.XXXA Fall from bed, initial encounter; Y92.009 Unspecified place in unspecified non-institutional (private) residence as the place of occurrence of the external cause
CPT/HCPCS: 70450; 72125; 72128; 72131; 72170

== ENCOUNTER → 2020-08-21 | Outpatient (CLI) | payer MEDICAID ==
--- NOTE | 2020-08-21 17:25 | Diagnostic Imaging Report ---
INDICATION: Routine screening. Comparison is made with prior mammogram from 02/16/2010. 2-D and 3-D bilateral screening mammography was performed with CAD. Scattered fibroglandular densities are identified bilaterally. There are extensive benign secretory calcifications throughout both breasts. No mass or malignant appearing microcalcifications are seen. The axillae are unremarkable. IMPRESSION: BI-RADS Category 2 No mammographic features suspicious for malignancy are identified. ACR BI-RADS Category 2: Benign findings. Result letter will be mailed to the patient. Note: At least 10% of breast cancer is not imaged by mammography. Dictated by: Dictated on workstation # [id number]
== END ==
LOC: RAD 10:25
PROVIDERS: ATTEND Nurse Practitioner Family
DX: Z12.31 Encounter for screening mammogram for malignant neoplasm of breast (principal)
CPT/HCPCS: 77063; 77067

== ENCOUNTER → 2021-03-02 | Outpatient (CLI) | payer MEDICAID ==
[~2021-03-02] MED LIST changes: -OMEP40CA27 PO; +OMEP40CA6 PO
== END ==
LOC: CARD 14:30
PROVIDERS: ATTEND Pediatrics
DX: I35.8 Other nonrheumatic aortic valve disorders (principal); I51.7 Cardiomegaly
CPT/HCPCS: 93306

== ENCOUNTER 2022-12-03 20:12 | Emergency (ER) | payer MEDICAID ==
[~2022-12-03] VITALS: Ht 167.7 cm; Wt 67.1 kg
[2022-12-03 20:40] VITALS: BP 112/58
== END 2022-12-03 20:51 | disposition left against medical advice (07) ==
LOC: EDUNIT# 20:12 → ER 20:16
DX: R42 Dizziness and giddiness (principal)
CPT/HCPCS: 82947